=== PATIENT | female | born 1995 | race African-American/Black ===

== ENCOUNTER 2020-05-07 11:09 | Outpatient (CLI) | payer OTHER, BC, SELFPAY ==
[2020-05-07 11:48] LABS: Basophils Percent Auto 0.6 % (0.2-1.2); Eosinophils Absolute Auto 0.3 K/mm3 (0-0.3); Hematocrit 41.2 % (37.0-47.0); Hemoglobin 13.2 g/dL (12.0-15.0); Immature Granulocyte Absolute 0.02 K/mm3 (0.00-0.031); Immature Granulocyte Percent A 0.3 % (0-0.5); Lymphocytes Absolute Auto 2.08 K/mm3 (0.9-3.2); Lymphocytes Percent Auto 30.8 % (18.3-44.2); Mean Corpuscular Hemoglobin 26.1 pg (26-34); Mean Corpuscular Volume 81.4 fl (80-100); Monocytes Absolute Auto 0.4 K/mm3 (0.1-0.6); Monocytes Percent Auto 6.2 % (2.6-8.5); Neutrophils Absolute Auto 3.9 K/mm3 (1.3-6.7); Neutrophils Percent Auto 57.1 % (45.5-73.1); Platelet Count Result 236 k/mm3 (150-375); Red Blood Count 5.06 M/mm3 (4.2-5.4); Red Cell Distribution Width 13.7 % (11.5-14.5); White Blood Count 6.8 K/mm3 (4.5-10.0)
[2020-05-07 12:00] LABS: Alanine Aminotransferase 13 U/L (4-35); Albumin Level 4.1 g/dL (3.5-5.1); Alkaline Phosphatase 50 U/L (38-126); Anion Gap 7 mmol/L (8-16); Aspartate Amino Transferase 20 U/L (14-36); Bilirubin,Total 0.4 mg/dL (0.2-1.3); Blood Urea Nitrogen 11 mg/dL (7-17); Carbon Dioxide 27 mmol/L (22-30); Chloride 107 mmol/L (98-107); Cholesterol 149 mg/dL (0-200); Estimated Glomerular Filt Rate > 60; Glucose 89 mg/dL (65-105); HDL Direct 42 mg/dL; Potassium 4.3 mmol/L (3.4-5.0); Sodium 141 mmol/L (137-145); Triglycerides 98 mg/dL (<150)
[2020-05-07 12:11] LABS: LDL Cholesterol Direct 89 mg/dL
== END 2020-05-07 11:10 | disposition home or self-care (01) ==
PROVIDERS: PCP Internal Medicine; Visit Provider Clinical Nurse Specialist
DX: Z13.228 Encounter for screening for other metabolic disorders (principal); Z13.220 Encounter for screening for lipoid disorders
CPT/HCPCS: 36415; 80053; 80061; 85025

== ENCOUNTER 2021-05-21 13:05 | Outpatient (CLI) | payer OTHER, BC, SELFPAY ==
[2021-05-21 13:24] LABS: Basophils Absolute Auto 0.1 K/mm3 (0.0-0.1); Basophils Percent Auto 0.7 % (0.2-1.2); Eosinophils Absolute Auto 0.3 K/mm3 (0-0.3); Eosinophils Percent Auto 3.7 % (0-4.4); Hematocrit 40.8 % (37.0-47.0); Hemoglobin 13.1 g/dL (12.0-15.0); Immature Granulocyte Absolute 0.01 K/mm3 (0.00-0.031); Immature Granulocyte Percent A 0.1 % (0-0.5); Lymphocytes Absolute Auto 2.37 K/mm3 (0.9-3.2); Lymphocytes Percent Auto 35.3 % (18.3-44.2); Mean Corpuscular HGB Conc 32.1 g/dl (32-36); Mean Corpuscular Hemoglobin 26.3 pg (26-34); Mean Corpuscular Volume 81.9 fl (80-100); Mean Platelet Volume 11.1 fl (7.4-10.4); Monocytes Absolute Auto 0.5 K/mm3 (0.1-0.6); Monocytes Percent Auto 7.3 % (2.6-8.5); Neutrophils Absolute Auto 3.5 K/mm3 (1.3-6.7); Neutrophils Percent Auto 52.9 % (45.5-73.1); Platelet Count Result 241 k/mm3 (150-375); Red Blood Count 4.98 M/mm3 (4.2-5.4); Red Cell Distribution Width 13.6 % (11.5-14.5); White Blood Count 6.7 K/mm3 (4.5-10.0)
[2021-05-21 13:41] LABS: Alanine Aminotransferase 12 U/L (4-35); Albumin Level 4.4 g/dL (3.5-5.1); Alkaline Phosphatase 51 U/L (38-126); Anion Gap 5 mmol/L (8-16); Aspartate Amino Transferase 22 U/L (14-36); Bilirubin,Total 0.5 mg/dL (0.2-1.3); Blood Urea Nitrogen 9 mg/dL (7-17); Carbon Dioxide 26 mmol/L (22-30); Chloride 108 mmol/L (98-107); Cholesterol 158 mg/dL (0-200); Estimated Glomerular Filt Rate > 60; Glucose 84 mg/dL (65-110); HDL Direct 39 mg/dL; Potassium 4.6 mmol/L (3.4-5.0); Sodium 139 mmol/L (137-145); Triglycerides 87 mg/dL (<150)
[2021-05-21 13:52] LABS: LDL Cholesterol Direct 90 mg/dL
== END 2021-05-21 13:06 | disposition home or self-care (01) ==
PROVIDERS: PCP Internal Medicine; Visit Provider Clinical Nurse Specialist
DX: I10 Essential (primary) hypertension (principal)
CPT/HCPCS: 36415; 80053; 80061; 84443; 85025

== ENCOUNTER 2021-07-10 12:46 | Outpatient (CLI) | payer OTHER, BC, SELFPAY ==
--- NOTE | ~2021-07-10 | US_ITS ---
EXAMINATION: US retroperitoneal duplex ltd, US renal BI DATE: 07/10/2021 13:47 INDICATION: Hypertension. Other specified disorders of kidney and ureter. TECHNIQUE: 1. Multiple grayscale and color Doppler images of the kidneys were obtained. 2. Multiple grayscale and pulsed Doppler images of the aorta and renal arteries were obtained. COMPARISON: None. FINDINGS: Kidneys: The right kidney measures 10.3 x 4.7 x 4.6 cm. The left kidney measures 9.7 x 5.0 x 4.4 cm. The kidne ys demonstrate normal echogenicity. There is no hydronephrosis in either kidney. No stones identifie d. The bladder is normal. Renal arteries/vascular: The aorta peak systolic velocity is 162 cm/s. The right renal artery peak systolic velocity is 80 cm/ s in the proximal segment, 149 cm/s in the mid segment, and 75 cm/s in the distal segment. The left r enal artery peak systolic velocity is 142 cm/s in the proximal segment, 123 cm/s in the mid segment, and 93 cm/s in the distal segment. IMPRESSION: 1. Normal kidneys with no hydronephrosis. 2. No Doppler evidence of renal artery stenosis. Reviewed, dictated and finalized at location A. IMPRESSION: 1. Normal kidneys with no hydronephrosis. 2. No Doppler evidence of renal artery stenosis.
== END 2021-07-10 12:47 | disposition home or self-care (01) ==
PROVIDERS: PCP Internal Medicine; Visit Provider Clinical Nurse Specialist
DX: N28.89 Other specified disorders of kidney and ureter (principal); I10 Essential (primary) hypertension
CPT/HCPCS: 76775; 93976

== ENCOUNTER 2023-05-26 11:15 | Outpatient (CLI) | payer BC, MEDICAID, SELFPAY ==
[2023-05-26 14:41] LABS: Basophils Percent Auto 0.6 % (0.2-1.2); Eosinophils Absolute Auto 0.2 K/mm3 (0-0.3); Eosinophils Percent Auto 3.1 % (0-4.4); Hematocrit 43.4 % (37.0-47.0); Hemoglobin 13.3 g/dL (12.0-15.0); Immature Granulocyte Absolute 0.02 K/mm3 (0.00-0.031); Immature Granulocyte Percent A 0.3 % (0-0.5); Lymphocytes Percent Auto 26.7 % (18.3-44.2); Mean Corpuscular HGB Conc 30.6 g/dl (32-36); Mean Corpuscular Hemoglobin 25.8 pg (26-34); Mean Corpuscular Volume 84.3 fl (80-100); Mean Platelet Volume 12.3 fl (7.4-10.4); Monocytes Absolute Auto 0.5 K/mm3 (0.1-0.6); Monocytes Percent Auto 6.9 % (2.6-8.5); Neutrophils Absolute Auto 4.4 K/mm3 (1.3-6.7); Neutrophils Percent Auto 62.4 % (45.5-73.1); Platelet Count Result 250 k/mm3 (150-375); Red Blood Count 5.15 M/mm3 (4.2-5.4); Red Cell Distribution Width 13.8 % (11.5-14.5); White Blood Count 7.1 K/mm3 (4.5-10.0)
[2023-05-26 15:39] LABS: Alanine Aminotransferase 19 U/L (6-35); Albumin Level 4.6 g/dL (3.5-5.1); Alkaline Phosphatase 62 U/L (38-126); Anion Gap 5 mmol/L (8-16); Aspartate Amino Transferase 48 U/L (14-36); Bilirubin,Total 0.9 mg/dL (0.2-1.3); Blood Urea Nitrogen 11 mg/dL (7-17); Calcium 9.8 mg/dL (8.4-10.2); Carbon Dioxide 29 mmol/L (22-30); Chloride 105 mmol/L (98-107); Cholesterol 154 mg/dL (0-200); Estimated Glomerular Filt Rate > 60; Glucose 89 mg/dL (65-110); HDL Direct 39 mg/dL; Potassium 4.3 mmol/L (3.4-5.0); Sodium 139 mmol/L (137-145); Triglycerides 85 mg/dL (<150)
[2023-05-26 15:50] LABS: LDL Cholesterol Direct 97 mg/dL
[2023-05-28 13:23] LABS: Hemoglobin A1C 5.3 % (<5.7)
== END 2023-05-26 11:16 | disposition home or self-care (01) ==
LOC: ANHGOSHLAB 11:17
PROVIDERS: PCP Internal Medicine; Visit Provider Clinical Nurse Specialist
DX: F41.9 Anxiety disorder, unspecified (principal); R73.9 Hyperglycemia, unspecified; I10 Essential (primary) hypertension; E55.9 Vitamin D deficiency, unspecified; Z13.228 Encounter for screening for other metabolic disorders
CPT/HCPCS: 36415; 80053; 80061; 82306; 83036; 84443; 85025

== ENCOUNTER 2024-04-03 09:22 | Outpatient (CLI) | payer BC, OTHER, SELFPAY ==
--- OUTSIDE RECORDS SUMMARY | 2024-04-03 09:57 | XMS_ITS | Clinical Summary ---
Author Organization [id number] Address [address] [place] [address] Care Team Providers Care Retail Loss Prevention Specialist Name Role Phone No, Physician Primary Care Provider [phone] Allergies No known active allergies Medications propranolol (INDERAL) 20 mg tablet TAKE 1 TABLET BY MOUTH TWICE A DAY 01/25/2019 Active escitalopram (LEXAPRO) 10 mg tablet TAKE 1 TABLET BY MOUTH EVERY DAY 01/02/2019 Active L norgest/e.estrad iol-e.estrad 0.10 mg-20 mcg (84)/10 mcg (7) tablets,dose pack,3 month TAKE 1 TABLET BY MOUTH EVERY DAY 01/02/2019 Active Active Problems Problem Noted Date Diagnosed Date Dysmenorrhea 10/06/2012 Vaginal discharge 07/26/2012 Generalized anxiety disorder 06/28/2012 Bacterial vaginosis 04/22/2012 Encounter for contraceptive management 3 Epistaxis 02/10/2012 Social phobia 02/02/2012 Myopia 01/25/2012 Astigmatism 01/25/2012 Abnormal finding on thyroid function test 2011 Mixed anxiety depressive disorder 07/30/2011 Abdominal pain 02/19/2011 Eczema 11/14/2010 Hay fever 11/14/2010 Complete tear of anterior cruciate ligament of k nee 03/22/2009 Vitamin D deficiency disease 10/03/2008 Obesity 09/25/2008 Hypertension 08/25/2007 Medical History Medical History Date Comments Encounter for contraceptive management Contraceptive management - (Added by TW Conv) Social History Tobacco Use Types Packs/Day Years Used Date Smoking Tobacco: Never Smokeless Tobacco: Never Personal Safety Answer Date Recorded Getting School Help Needed Not on file 05/21 Comments Unknown Sex and Gender Information Value Date Recorded Sex Assigned at Not on file Legal Sex Female 9:17 PM SENIOR 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 DBA Gender Identity Not on file Sexual Orientation Not on file Obstetrics History Last Filed Vital Signs Vital Sign Reading Time Taken Comments Blood Pressure 154/89 08/12/2021 5:26 AM CDT Pulse 98 08/12/2021 5:26 AM CDT Temperature 36.8 ??C (98.2 ??F) 08/12/2021 4:44 AM CD T Respiratory Rate 20 08/12/2021 5:26 AM CDT Oxygen Saturation 98% 08/12/2021 5:26 AM CDT Inhaled Oxygen Concentration - - Weight 88.1 kg (194 lb 3.6 oz) 08/12/2021 4:44 A M CDT Height 160 cm (5' 3 ) 03/10/2019 3:23 PM SENIOR ORACLE DBA Body Mass Index 34.41 03/10/2019 3:23 PM SENIOR ORACLE DBA Plan of Treatment Not on file Insurance [employer]PA [place] OPEN ACCESS IDPA CIGNA OPEN ACCESS CIGNA OPEN ACCESS Care Teams Retail Loss Prevention Specialist Relationship Specialty Start Date End Date No, Physician PCP - General 03/10/19
--- OUTSIDE RECORDS SUMMARY | 2024-04-03 09:57 | XMS_ITS | Clinical Summary ---
Author Organization [facility] Address [address] [place] [address] Care Team Providers Care Game Show Host Name Role Phone Elvia Perez APRN-[facility] Primary Care Provider [phone] Source Comments [facility],non-owned Affiliates and Associated Physician Practices is amultiple site organization consisting of ambulatory clinics and hospital sitesin [place], [place], [place] and [place]. This disclosure is being madepursuant to the Care Everywhere program and may not contain all information available regarding this patient. Last updated 17.[facility] Allergies Active Allergy Reactions Criticality Noted Date Comments Dust Mite Extract Rhinitis 11/14/2013 Medications * Be aware that medications may not be up to date on this document. Alwaysverify current medications with the patient. Medication Sig Dispensed Refills Start Date End Date Status diphenhydrAMINE (BENADRYL) 25 MG capsule Take 25 mg by mouth every 4 hours as needed. For itching Active escitalopram (LEXAPRO) 20 MG tablet Take 1 (one) tablet by mouth once daily 09/28/2020 Active buPROPion XL 24hr (Wellbutrin-XL) 150 MG tablet Take 1 (one) tablet by mouth every morning 10/04/2023 Active lisinopril (Prinivil; Zestril) 5 MG tablet Take 1 (one) tablet by mouth once daily 10/05/2023 Active Ashlyna 0.15-0.03 &0.01 MG tablet Take 1 (one) tablet by mouth once daily 91 tablet 4 11/09/2023 Active Active Problems Problem Noted Date Diagnosed Date Candidiasis 10/22/2023 Depression 06/07/2013 History of heavy periods 06/07/2013 Vaginal discharge 06/07/2013 Vaginitis, atrophic 06/07/2013 Immunizations Name Administration Dates Next Due Covid Pfizer primary monoval ent 12+ yr 0.3mL Purple cap 10/15/2020,10/15/2020,09/25/2020, 021 INFLUENZA VACCINE 01/05/2013 Family History Medical History Relation Name Comments Hypertension Brother Hypertension Mother Hypertension Other paternal uncle on dialysis Relation Name Status Comments Brother Mother Other Social History Tobacco Use Types Packs/Day Years Used Date Smoking Tobacco: Never Smokeless Tobacco: Never Alcohol Use Standard Drinks/Week Comments No 0 (1 standard drink = 0.6 oz pur e alcohol) Sex and Gender Information Value Date Recorded Sex Assigned at Not on file Gender Identity Not on file Sexual Orientation Not on file Last Filed Vital Signs Vital Sign Reading Time Taken Comments Blood Pressure 128/84 11/09/2023 3:45 PM CDT Pulse 94 04/19/2015 7:00 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 Temperature 36.3 ??C (97.3 ??F) 11/08/2019 3:17 PM CD T Respiratory Rate 20 04/19/2015 7:00 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 Oxygen Saturation 99% 04/19/2015 7:00 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 Inhaled Oxygen Concentration - - Weight 83.5 kg (184 lb) 11/09/2023 3:45 PM CDT Height 160 cm (5' 3 ) 11/09/2023 3:45 PM CDT Body Mass Index 32.59 11/09/2023 3:45 PM CDT Plan of Treatment Upcoming Encounters Date Type Department Care Team (Late st Contact Info) Description 11/15/2024 10:15 AM CDT Office Visit [facility] [address] [facility] [address] [place] [address] Berna Araiza MD [address] [facility] [address] [place] [address] Health Maintenance Due Date Last Done Comments HIV SCREENING 2012 HPV VACCINE (1 - 3-dose series) 2012 HEPATITIS C SCREENING 08/03/2015 DTAP/TDAP/TD VACCINES (1 - Tdap) 2016 HEPATITIS B VACCINE (1 of 3 - 19+ 3-dose series) 2016 COVID-19 VACCINE ( season) 2023 10/15/2020, 10/15/2020, 09/25/2020, Additional history exists INFLUENZA VACCINE (#1) 2023 04/14/2017, 2012 DEPRESSION SCREENING 03/08/2024 PAP SMEAR 11/08/2026 11/09/2023, 10/08, 08/12/2021, Additional history exists ZOSTER VACCINE (1 of 2) 08/08/2047 HIB VACCINE Aged Out No longer eligi ble based on patient's age to complete this topic MENINGOCOCCAL (Group B) VACCINE Aged Out No longer eligible based on patient's age to complete this topic MENINGOCOCCAL VACCINE Aged Out No wilver shirin eligible based on patient's age to complete this topic PNEUMOCOCCAL VACCINE Aged Out No long er eligible based on patient's age to complete this topic Procedures Procedure Name Priority Date/Time Associated Diagnosis Comments PAP IMAGE-GUIDED W HPV+CT/NG+TRICH Routine 11/09/2023 4:08 PM CDT Encounter for annual routine gynecological examination Screen for STD (sexually transmitted disease) ASCUS with positive high risk HPV cervical from Last 3 Months or Most Recently Relevant to Health Maintenance Results * All inclusive PAP IG CT/NG/TV HPV (11/09/2023 4:08 PM CDT) Case Report Gynecologic Cytology Report ? Case: [id number] ? Authorizing Provider: ??Berna Araiza MD ? Collected: ? 11/09/2023 04:08 PM ? [facility] ? [facility] - ??Received: ?11/10/2023 01:03 PM ? [facility] ? First Screen: ?Gael Cameron CT(ASCP) ? Specimen: ?THINPREP - IMAGE GUIDED, Cervix/Endocervix ? 11/11/2023 1:01 PM CDT [facility] LMP 10/12/2023 11/11/2023 1:01 PM CDT [facility] Menstrual Status Oral Contraceptives 11/11/2023 1:01 PM CDT [facility] Specimen Adequacy Satisfactory for evaluation, endocervical/trans formation zone component present. 11/11/2023 1:01 PM CDT [facility] Categorization Negative for intraepithelial lesion or malignancy. 11/11/2023 1:01 PM CDT [facility] Interpretation LICENSED FINAL EXPENSE AGENTS Negative for intraepithelial lesion or malignancy. 11/11/2023 1:01 PM CDT [facility] Pap Footnote The Pap Smear is a screening test. False positive and false negative results occur. Negative results do not preclude abnormalities, thus clinical correlation is required. This specimen was evaluated by the ThinPrep Imaging System along with an additional manual rescreening by a jewelry facer and/or pathologist. 11/11/2023 1:01 PM CDT [facility] Embedded Images 1:01 PM CDT [facility] Pathology/Cytolo gy MISCELLANEOUS SAMPLES / Unknown 11/09/2023 4:08 PM CDT 11/10/2023 1:03 PM CDT Berna Araiza MD LAB - PATHOLOGY/CYTO LOGY ORDERABLES [facility] [address] [phone] from Last 3 Months or Most Recently Relevant to Health Maintenance Care Teams Game Show Host Relationship Specialty Start Date End Date Elvia Perez APRN-SENIOR MARKETING ENGINEER [address] [place] [address] PCP - General Certified Clinical Nurse Specialist 11/04/22
--- OUTSIDE RECORDS SUMMARY | 2024-04-03 09:57 | XMS_ITS | Clinical Summary ---
Author Organization [facility] Address [address] [place] [address]. [place] [address] [place] [address] Care Team Providers Care Electrical Line Splicer Name Role Phone New Referring, Provider Primary Care Provider Un available Allergies No known active allergies Medications busPIRone 5 MG tablet Take 5 mg by mouth 2 (two) times daily. 05/08/2020 Active escitalopram 10 MG tablet Take 10 mg by mouth daily. 11/08/2019 Active Levonorgest-Eth Estrad 91-Day 0.1-0.02 & 0.01 MG Tab Take 1 tablet by mouth daily. 05/31/2020 Active lisinopril 10 MG tablet Take 10 mg by mouth daily. 02/20/2020 Active hydrOXYzine 25 MG tablet Take 1 tablet (25 mg total) by mouth 3 (three) times daily as needed for Anxiety. 12 tablet 08/22/2020 Active Family History Medical History Relation Comments Asthma Brother Diabetes Father Hypertension Father Hypertension Mother Multiple Sclerosis Mother Relation Status Comments Brother Father Alive Mother Alive Social History Tobacco Use Types Packs/Day Years Used Date Smoking Tobacco: Never Smokeless Tobacco: Never Alcohol Use Standard Drinks/Week Comments Never 0 (1 standard drink = 0.6 oz pur e alcohol) AUDIT-C Answer Date Recorded Q1: How often do you have a drink containing alc ohol? Never 06/27/2020 Average Number of Drinks Not on file 021 Frequency of Binge Drinking Not on file 06/07 Comments No Sex and Gender Information Value Date Recorded Sex Assigned at Not on file Legal Sex Female 6:46 PM CDT Gender Identity Not on file Sexual Orientation Not on file Last Filed Vital Signs Vital Sign Reading Time Taken Comments Blood Pressure 180/110 08/22/2020 2:48 PM CDT Pulse 127 08/22/2020 2:48 PM CDT Temperature 37.3 ??C (99.2 ??F) 08/22/2020 2:48 PM CD T Respiratory Rate 18 08/22/2020 2:48 PM CDT Oxygen Saturation 97% 08/22/2020 2:48 PM CDT Inhaled Oxygen Concentration - - Weight 90.7 kg (200 lb) 08/22/2020 2:48 PM CDT Height 160 cm (5' 3 ) 08/22/2020 2:48 PM CDT Body Mass Index 35.43 08/22/2020 2:48 PM CDT Plan of Treatment Health Maintenance Due Date Last Done Comments Annual Physical 2000 DTaP, Tdap and Td Vaccines (5 - Tdap) 2008 12/30/1998, 04/17/1998, 01/15/1998, Additional history exists HPV Vaccines (2 - 3-dose series) 06/28/2014 05/31/2014 Hepatitis C 08/08/2015 Hepatitis B Vaccines (1 of 3 - 19+ 3-dose series) 2016 COVID-19 Vaccine ( - season) 2023 10/15/2020, 09/25/2020, 09/24/2020 Influenza Adult (#1) 2023 04/14/2017, 01/06/20 13 Cervical Cancer Screening Pap Smear (Age 21 to 29) Every 3 Years 08/12/2024 08/12/2021 Cervical Cancer Screening 08/12/2024 Meningococcal Vaccine Completed 05/31/2014 Meningococcal B Vaccine Aged Out No l onger eligible based on patient's age to complete this topic Pneumococcal Vaccine: Pediatrics (0 to 5 Years) and At-Risk Patients (6 to 64 Years) Aged Out No longer eligible based on patient's age to complete this topic RSV Immunizations Under 20 Months Aged Out No longer eligible based on patient's age to complete this topic Insurance [place] [address] [place] [address] Care Teams Electrical Line Splicer Relationship Specialty Start Date End Date New Referring, Provider PCP - General UNKNOWN PHYSICIAN SPECIALTY 08/22/20
--- OUTSIDE RECORDS SUMMARY | 2024-04-03 09:57 | XMS_ITS | Continuity of Care Document ---
Author Organization [facility] Address [address] [place] [address] Phone Care Team Providers Care Loan Review Officer Name Role Phone Candy Dockery Unavailable Unavailable Advance Directives Directive Yes / No Effective Date File Name No Information Encounters Encounter Description Practice Location Reason(s) For Visit Diagnoses Date Provider Providers Copied on Encounter [facility], [address], [place], [place], [id number], [place] tel:[phone] [facility] No Information Shiloh Gupta. [address] [place] [address], [id number], [place]. tel:[phone] Family History Family Member Type Diagnosis Age At Onset No Information Payers Payer name Insurance type Covered republican ID Authoriza tion(s) No Information Social History Type Description Quantity Date Captured Comments Alcohol Use Details Unknown Caffeine Use Details Unknown Tobacco Use Status No Information Smoking Status No Information Sex Female Chief Complaint And Reason For Visit No Information Reason For Referral Reason For Referral No Information History Of Present Illness Encounter Date Complaint History Of Prese nt Illness No Information Functional Status Date Functional Assessmen t No Information Instructions Date Instruction Additional Infor mation No Information Assessments Type Assessment Date No Information Patient Care Teams Name Effective Dates (start - stop) Status Members No Information
--- OUTSIDE RECORDS SUMMARY | 2024-04-03 09:57 | XMS_ITS | Clinical Summary ---
Author Organization 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 Gender Identity Not on file Sexual Orientation Not on file Plan of Treatment Health Maintenance Due Date Last Done Comments Hepatitis C Virus (HCV) Screening 1997 TdaP Immunization 1997 Human Papillomavirus (HPV) Immunization (2 - 3-dose series) 06/28/2014 05/31/2014 Pap Smear 2018 Influenza Immunization (#1) 2023 04/14/2017 SARS-COV-2 Immunization ( season) 2023 10/15/2020, 09/24/2020 Respiratory Syncytial Virus (RSV) Immunization (Adult) (1 - 1-dose 75+ series) 2072 Hepatitis B Immunization Completed 999, 01/15/1998, 1997 DTaP/Tdap/Td Immunization Discontinued 1998, 04/17/1998, 01/15/1998, Additional history exists Meningococcal Immunization (ACWY) Completed 05/31/2014 Pneumococcal Immunization Combined Aged Out No longer eligible based on patient's age to complete this topic Rotavirus Immunization Aged Out No lo nger eligible based on patient's age to complete this topic Insurance [employer] on file
--- OUTSIDE RECORDS SUMMARY | 2024-04-03 09:57 | XMS_ITS | Patient Health Summary ---
Author Organization [facility] Address [address] [address] Care Team Providers Care Psychiatric Nurse Practitioner Name Role Phone Elvia Perez APRN-PERSONAL LOAN SPECIALIST Primary Care Provider [phone] Note from [facility],non-owned Affiliates and Associated Physician Practices is amultiple site organization consisting of ambulatory clinics and hospital sitesin [place], [place], [place] and [place]. This disclosure is being madepursuant to the Care Everywhere program and may not contain all information available regarding this patient. Last updated 17.[facility] Allergies * Dust Mite Extract(Rhinitis) * Oxymetazoline Hcl(Rash) -High Criticality,Inactive Medications * Be aware that medications may not be up to date on this document. Alwaysverify current medications with the patient. * diphenhydrAMINE (BENADRYL) 25 MG capsule Take 25 mg by mouth every 4 hours as needed. For itching * escitalopram (LEXAPRO) 20 MG tablet(Started 09/28/2020) Take 1 (one) tablet by mouth once daily * buPROPion XL 24hr (Wellbutrin-XL) 150 MG tablet(Started 10/04/2023) Take 1 (one) tablet by mouth every morning * lisinopril (Prinivil; Zestril) 5 MG tablet(Started 10/05/2023) Take 1 (one) tablet by mouth once daily * Ashlyna 0.15-0.03 &0.01 MG tablet(Started 11/09/2023) Take 1 (one) tablet by mouth once daily 4 refills by 11/08/2024 Active Problems Problem Noted Date Diagnosed Date Candidiasis 10/22/2023 Depression 06/07/2013 History of heavy periods 06/07/2013 Vaginal discharge 06/07/2013 Vaginitis, atrophic 06/07/2013 Immunizations * Covid Pfizer primary monovalent 12+ yr 0.3mL Purple cap(Given 10/15/2020, 10/15/2020, 09/25/2020, 09/24/2020) * INFLUENZA VACCINE(Given 01/05/2013) Social History Tobacco Use Types Packs/Day Years [...] PM CDT Pulse 94 04/19/2015 7:00 PM [employer] Temperature 36.3 ??C (97.3 ??F) 11/08/2019 3:17 PM CD T Respiratory Rate 20 04/19/2015 7:00 PM [employer] Oxygen Saturation 99% 04/19/2015 7:00 PM [employer] Inhaled Oxygen Concentration - - Weight 83.5 kg (184 lb) 11/09/2023 3:45 PM CDT Height 160 cm (5' 3 ) 11/09/2023 3:45 PM CDT Body Mass Index 32.59 11/09/2023 3:45 PM CDT Procedures * FUNGUS JOSE - POINT OF CARE (AMB) [facility](Performed 11/09/2023) Performed for Vaginal discharge * WET PREP - POINT OF CARE (AMB) [facility](Performed 11/09/2023) Performed for Vaginal discharge * PAP IMAGE-GUIDED W HPV+CT/NG+TRICH(Performed 11/09/2023) Performed for Encounter for annual routine gynecological examination, Screen for STD (sexually transmitted disease), ASCUS with positive high risk HPV cervical * C. TRACHOMATIS + N. GONORRHOEAE + TRICH YUE(Performed 11/09/2023) Performed for Encounter for annual routine gynecological examination, Screen for STD (sexually transmitted disease), ASCUS with positive high risk HPV cervical * HPV DETECTION HIGH RISK YUE(Performed 11/09/2023) Performed for Encounter for annual routine gynecological examination, Screen for STD (sexually transmitted disease), ASCUS with positive high risk HPV cervical * SURESWAB VAGINOSIS/VAGINITIS PLUS(Performed 10/21/2023) Performed for Acute vaginitis * MS COLPOSCOPY,BX CERVIX/ENDOCERV CURR(Performed 12/28/2022) Performed for ASCUS with positive high risk HPV cervical * HCG URINE QUALITATIVE - POCT (IP) [facility](Performed 12/28/2022) Performed for ASCUS with positive high risk HPV cervical * PATHOLOGY TISSUE(Performed 12/28/2022) Performed for ASCUS with positive high risk HPV cervical * PAP IMAGE-GUIDED RFLX HPV+CT/NG+TRICH(Performed 11/04/2022) Performed for BV (bacterial vaginosis), Encounter for annual routine gynecological examination, Screen for STD (sexually transmitted disease), Vaginal discharge * HPV GENOTYPES 16,18/45(Performed 11/04/2022) Performed for BV (bacterial vaginosis), Encounter for annual routine gynecological examination, Screen for STD (sexually transmitted disease), Vaginal discharge * HPV DETECTION HIGH RISK YUE(Performed 11/04/2022) Performed for BV (bacterial vaginosis), Encounter for annual routine gynecological examination, Screen for STD (sexually transmitted disease), Vaginal discharge * C. TRACHOMATIS + N. GONORRHOEAE + TRICH YUE(Performed 11/04/2022) Performed for BV (bacterial vaginosis), Encounter for annual routine gynecological examination, Screen for STD (sexually transmitted disease), Vaginal discharge * C. TRACHOMATIS + N. GONORRHOEAE + TRICH YUE(Performed 01/17/2021) Performed for Vaginitis and vulvovaginitis * FUNGUS JOSE - POINT OF CARE (AMB) [facility](Performed 01/07/2021) Performed for Vaginal discharge, Chronic vaginitis * WET PREP - POINT OF CARE (AMB) [facility](Performed 01/07/2021) Performed for Vaginal discharge, Chronic vaginitis * SUSCEPTIBILITY YEAST(Performed 01/07/2021) * CULTURE FUNGUS OTHER+FUNGUS SMEAR(Performed 01/07/2021) Performed for Vaginal discharge, Chronic vaginitis * WET PREP - POINT OF CARE (AMB) [facility](Performed 09/04/2020) Performed for Vaginal discharge, Vaginal yeast infection * FUNGUS JOSE - POINT OF CARE (AMB) [facility](Performed 09/04/2020) Performed for Vaginal discharge, Vaginal yeast infection * PAP IMAGE-GUIDED RFLX HPV+CT/NG+TRICH(Performed 09/04/2020) Performed for Transformation zone absent on cervical Pap smear, Vaginal discharge * C. TRACHOMATIS + N. GONORRHOEAE + TRICH YUE(Performed 09/04/2020) Performed for Transformation zone absent on cervical Pap smear, Vaginal discharge * PAP IMAGE-GUIDED RFLX HPV+CT/NG+TRICH(Performed 11/08/2019) Performed for Encounter for annual routine gynecological examination, Screen for STD (sexually transmitted disease) * C. TRACHOMATIS + N. GONORRHOEAE + TRICH YUE(Performed 11/08/2019) Performed for Encounter for annual routine gynecological examination, Screen for STD (sexually transmitted disease) * SURESWAB VAGINOSIS/VAGINITIS PLUS(Performed 02/25/2018) Performed for Acute vaginitis, Vaginal discharge * CULTURE URINE(Performed 02/23/2018) Performed for Urinary urgency * URINALYSIS - POINT OF CARE(Performed 02/22/2018) Performed for Urinary urgency * FUNGUS JOSE - POINT OF CARE (AMB) [facility](Performed 12/09/2015) * WET PREP - POINT OF CARE (AMB) [facility](Performed 12/09/2015) * CHLAMYDIA+GC YUE PAP VIAL(Performed 12/09/2015) * BASIC METABOLIC PANEL (CALCIUM TOTAL)(Performed 06/28/2015) Performed for HTN, age 0-18 * FUNGUS JOSE - POINT OF CARE (AMB) [facility](Performed 04/30/2015) * WET PREP - POINT OF CARE (AMB) [facility](Performed 04/30/2015) * FUNGUS JOSE - POINT OF CARE (AMB) [facility](Performed 01/28/2015) * WET PREP - POINT OF CARE (AMB) [facility](Performed 01/28/2015) * URINALYSIS - POINT OF CARE (AMB) [facility](Performed 01/28/2015) * CULTURE FUNGUS OTHER+FUNGUS SMEAR(Performed 01/28/2015) * LAB RESULTS ORDER(Performed 12/14/2014) * LH PEDIATRIC(Performed 05/02/2014) * FSH PEDIATRIC(Performed 05/02/2014) * HEMOGLOBIN A1C(Performed 05/02/2014) * ESTRADIOL(Performed 05/02/2014) * TESTOSTERONE TOTAL FEM/CHLD HYPOGNDL MALE(Performed 05/02/2014) * CULTURE FUNGUS OTHER+FUNGUS SMEAR(Performed 05/02/2014) * CHLAMYDIA + GC RNA(Performed 05/02/2014) * FUNGUS JOSE - POINT OF CARE (AMB) [facility](Performed 05/02/2014) * WET PREP - POINT OF CARE (AMB) [facility](Performed 05/02/2014) * BASIC METABOLIC PANEL (CALCIUM TOTAL)(Performed 04/27/2014) Performed for HTN (hypertension) * CBC W AUTO DIFFERENTIAL(Performed 04/27/2014) Performed for HTN (hypertension) * EKG 15-LEAD(Performed 04/27/2014) Performed for HTN (hypertension) * URINALYSIS - POCT (IP) [facility](Performed 04/27/2014) * BASIC METABOLIC PANEL (CALCIUM TOTAL)(Performed 11/14/2013) Performed for Renal scarring * URINALYSIS - POCT (IP) BEAKER(Performed 11/14/2013) * FUNGUS JOSE - POINT OF CARE (AMB) [facility](Performed 11/08/2013) * WET PREP - POINT OF CARE (AMB) [facility](Performed 11/08/2013) * ESTRADIOL(Performed 06/07/2013) * CBC W AUTO DIFFERENTIAL(Performed 06/07/2013) * THYROID PEROXIDASE ANTIBODY(Performed 06/07/2013) * T3 TOTAL(Performed 06/07/2013) * T4 TOTAL(Performed 06/07/2013) * T4 FREE(Performed 06/07/2013) * TSH(Performed 06/07/2013) * FUNGUS JOSE - POINT OF CARE (AMB) [facility](Performed 06/07/2013) * WET PREP - POINT OF CARE (AMB) [facility](Performed 06/07/2013) * URINE MICROSCOPIC ONLY(Performed 04/28/2013) Performed for HTN (hypertension) * URINALYSIS REFLEX TO MICROSCOPIC NO CULTURE(Performed 04/28/2013) Performed for HTN (hypertension) * CULTURE URINE(Performed 04/28/2013) Performed for HTN (hypertension) * LAB RESULTS ORDER(Performed 04/15/2013) * BASIC METABOLIC PANEL (CALCIUM TOTAL)(Performed 01/05/2013) Performed for HTN (hypertension) * CULTURE URINE(Performed 01/05/2013) Performed for HTN (hypertension) * URINALYSIS - POCT (IP) [facility]AK[facility](Performed 01/05/2013) * LAB RESULTS ORDER(Performed 06/23/2012) * BASIC METABOLIC PANEL (CALCIUM TOTAL)(Performed 04/08/2012) Performed for Hypertension * URINALYSIS - POCT (IP) [facility](Performed 04/08/2012) Performed for Hypertension * LAB RESULTS ORDER(Performed 11/26/2011) * US KIDNEY(Performed 11/20/2011) Performed for HTN (hypertension) * ECHO CONSULT - PEDIATRIC(Performed 11/20/2011) Performed for Essential hypertension, malignant * RENAL FUNCTION PANEL(Performed 10/02/2011) Performed for HTN (hypertension) * URINE MICROSCOPIC ONLY(Performed 10/02/2011) Performed for HTN (hypertension) * URINALYSIS REFLEX TO MICROSCOPIC NO CULTURE(Performed 10/02/2011) Performed for HTN (hypertension) * URINALYSIS - POINT OF CARE (IP)(Performed 03/24/2011) Performed for Hypertension * LAB RESULTS ORDER(Performed 01/13/2011) * DIFFERENTIAL MANUAL(Performed 12/23/2010) * CBC W AUTO DIFFERENTIAL(Performed 12/23/2010) Performed for Hypertension * RENAL FUNCTION PANEL(Performed 12/23/2010) Performed for Hypertension * MRI BRAIN WO CONTRAST(Performed 07/24/2010) * URINALYSIS REFLEX TO MICROSCOPIC NO CULTURE(Performed 06/17/2010) * CULTURE URINE(Performed 06/17/2010) * DIFFERENTIAL MANUAL(Performed 06/17/2010) * CBC W AUTO DIFFERENTIAL(Performed 06/17/2010) * RENAL FUNCTION PANEL(Performed 06/17/2010) * LAB RESULTS ORDER(Performed 06/10/2010) * URINALYSIS - POINT OF CARE (IP)(Performed 11/01/2009) Performed for Blood Pressure Elevated * URINALYSIS REFLEX TO MICROSCOPIC NO CULTURE(Performed 07/10/2009) Performed for Hypertension * RENAL FUNCTION PANEL(Performed 07/10/2009) Performed for Hypertension * CULTURE URINE(Performed 07/10/2009) * CULTURE URINE(Performed 07/10/2009) Performed for Unspecified Essential Hypertension * URINALYSIS - POINT OF CARE(Performed 05/14/2009) Performed for Unspecified Essential Hypertension * GROSS + MICRO EXAM(Performed 1997) Results * WET PREP - POINT OF CARE (AMB) [facility] (11/09/2023 4:10 PM CDT) Only the most recent of9 resultswithin the time period is included. pH Wet Prep 4.[address] [facility] [address] Yeast Wet Prep absent [facility] [address] Trichomonas Wet Prep Absent [facility] [address] Bacteria Wet Prep absent [facility] [address] Whiff Test absent [facility] [address] BODY FLUID SPECIMEN / Unknown 11/09/2023 4:10 PM CDT Impressions [facility] [address] - 11/09/2023 4:30 PM CDT Neg wet prep Narrative [facility] [address] - 11/09/2023 4:30 PM CDT No clue cells, no motile trich, ??no WBC's, no yeast hyphae Berna Araiza MD LAB - POINT OF CARE ORDERABLES Performing Organization Address City/[facility]/ZIP Co de Phone Number [facility] [address] [place] [address], [place] [phone] * (ABNORMAL) FUNGUS JOSE - POINT OF CARE (AMB) [facility] (11/09/2023 4:10 PM CDT) Only the most recent of9 resultswithin the time period is included. JOSE Prep Yes [facility] [address] Fluid BODY FLUID SPECIMEN / Unknown 11/09/2023 4:10 PM CDT Impressions [facility] [address] - 11/09/2023 4:30 PM CDT Yeast vaginitis Narrative [facility] [address] - 11/09/2023 4:30 PM CDT Yeast pseudohyphae noted Berna Araiza MD LAB - POINT OF CARE ORDERABLES [facility] [address] [place] [address] [phone] * HPV DETECTION HIGH RISK YUE (11/09/2023 4:08 PM CDT) Only the most recent of2 resultswithin the time period is included. High Risk Human Papilloma Result Not detected Not detected 11/11/2023 7:51 AM CDT [facility] High Risk Human Papilloma Interp 11/11/2023 7:51 AM CDT [facility] Comment:High Risk Human Jerod lloma Virus was Not Detected. Pathology/Cytolo gy MISCELLANEOUS SAMPLES / Unknown 11/09/2023 4:08 PM CDT 11/10/2023 1:03 PM CDT Narrative [facility] - 11/11/2023 7:51 AM CDT Nucleic acid isolated from the specimen was analyzed with a nucleic acid amplification test (FDA approved Gen-Probe HPV Assay) to detect high risk human papilloma virus (Types: 16, 18, 31, 33, 35, 39, 45, 51, 52, 56, 58, 59, 66, and 68). ??The reference range is Not Detected . Comment: These test results should not be used as the sole basis for clinical assessment and treatment of patients. ??These results should always be correlated with other available data (cytology, histology, and clinical information). Berna Araiza MD LAB - MICROBIOLOGY O [facility] Performing Organization Address City/State/[facility] Co de Phone Number [facility] [address] [phone] * C. TRACHOMATIS + N. GONORRHOEAE + TRICH YUE (11/09/2023 4:08 PM CDT) Only the most recent of5 resultswithin the time period is included. Chlamydia Trachomatis YUE Not detected Not detected 11/18/2023 8:19 AM CDT [facility] Neisseria Gonorrhoeae YUE Not detected Not detected 11/18/2023 8:19 AM CDT [facility] Trichomonas Vaginalis YUE Not detected Not detected 11/18/2023 8:19 AM CDT [facility] Pathology/Cytolo gy MISCELLANEOUS SAMPLES / Unknown 11/09/2023 4:08 PM CDT 11/10/2023 1:03 PM CDT Narrative [facility] - 11/18/2023 8:19 AM CDT This analysis was performed using Gen-Probe Aptima Combo 2 and Gen-Probe Aptima Assay. These methodologies are U.S. FDA approved for Chlamydia trachomatis, Neisseria gonorrhoeae testing for urine and urogenital swabs from men and women, and cervical cells submitted in ThinPrep vials. Performance characteristics of testing for Trichomonas vaginalis on specimens using the Gen-Probe Aptima Trichomonas vaginalis Assay on the [employer] system and rectal and pharyngeal swabs with Gen-Probe Aptima combo 2 were determined by the Molecular Diagnostics Laboratory at [facility]. ??They have not been cleared or approved by the U.S Food and Drug Administration (FDA). ??The FDA has determined that such clearance approval is not necessary. ??This test is used for clinical purposes and should not be regarded as investigational or for research. ??This laboratory is certified under the Clinical Laboratory Improvements Amendments of 1988 (CLIA 1988), as qualified to perform high complexity laboratory testing. Berna Araiza MD LAB - MICROBIOLOGY O RDERABLES [facility] [address] [facility] [place] [address], [facility] [phone] * All inclusive PAP IG CT/NG/TV HPV (11/09/2023 4:08 PM CDT) Case Report Gynecologic Cytology Report ? Case: [id number] ? Authorizing Provider: ??Berna Araiza MD ? Collected: ? 11/09/2023 04:08 PM ? Ordering Location: ? [facility] - ??Received: ?11/10/2023 01:03 PM ? VOICE DATA COMMUNICATIONS ENGINEER ? First Screen: ?Gael Cameron CT(ASCP) ? [...] 1:01 PM CDT [facility] Interpretation MOVERS Negative for intraepithelial lesion or malignancy. 11/11/2023 1:01 PM [facility] Pap Footnote The Pap Smear is a screening test. False positive and false negative results occur. Negative results do not preclude abnormalities, thus clinical correlation is required. This specimen was evaluated by the ThinPrep Imaging System along with an additional manual rescreening by a blunger and/or pathologist. 11/11/2023 1:01 PM CDT [facility] Embedded Images 1:01 PM CDT [facility] Pathology/Cytolo gy MISCELLANEOUS SAMPLES / Unknown 11/09/2023 4:08 PM CDT 11/10/2023 1:03 PM CDT Berna Araiza MD LAB - PATHOLOGY/CYTO LOGY ORDERABLES Performing Organization Address [facility] Co de Phone Number [facility] [address] [facility] [place] [address], [facility] [phone] * (ABNORMAL) [facility] VAGINOSIS/VAGINITIS PLUS (10/21/2023 3:00 PM CDT) Only the most recent of2 resultswithin the time period is included. Sureab Bacterial Vaginosis NEGATIVE NEGATIVE [facility] Darryl species DETECTED(A) NOT DETECTED [facility] Darryl glabrata YUE NOT DETECTED NOT DETECTED [facility] Comment: Darryl species C. albicans, C. tropicalis, C. parapsilosis, and/or C. dubliniensis can be detected, but not differentiated, in the Darryl spp. result. Trichomonas vaginalis TMA NOT DETECTED NOT DETECTED [facility] Chlamydia trachomatis RNA NOT DETECTED NOT DETECTED [facility] GC RNA NOT DETECTED NOT DETECTED [facility] Comment: For additional information, please refer to https://education.[employer]/faq/OJM064 (This link is being provided for information/ educational purposes only.) NO COLLECTION DATE RECEIVED. WE HAVE USED THE DATE THE SPECIMEN WAS RECEIVED BY THIS LABORATORY THE COLLECTION DATE. IF THIS IS INCORRECT, PLEASE CONTACT CLIENT SERVICES. PHONE NUMBER: [phone] Test Performed at: [facility]Work[address] ??[phone] JORGE LUTHER MD Microbiology VAGINAL SWAB / Unknown 10/21/2023 4:44 AM CDT Lucero Shirley APRN-RENNY LAB - MICROBIOLOGY ORDERABLES Performing Organization Address City/[facility]/ZIP Co de Phone Number [facility] [address] [place] [address] * MS COLPOSCOPY,BX CERVIX/ENDOCERV CURR (12/28/2022 2:43 PM CDT) Narrative Berna Araiza MD - 12/28/2022 2:43 PM CDBerna Hernandez MD ? 12/28/2022 ??2:46 PM [facility] DEPARTMENT OF OBSTETRICS AND GYNECOLOGY CERVICAL DYSPLASIA EVALUATION Cy Hernandez Allergies Allergen Reactions ? ? Dust Mite Extract Rhinitis 27 year old Patient's last menstrual period was 11/30/2022 (approximate). RACE: AA CONTRACEPTION: OCP REFERRING: Jose G MOST SEVERE CYTOLOGY: DATE: 11/04/2022 DIAGNOSIS: ASCUS, +HPV ??16 neg, 18/45 positive Chief Complaint Patient presents with ? ? Colposcopy PERTINENT HX: 11/08/2019: ??pap neg, no EC component, +inflammation ??repeat 2020 heavy yeast 09/04/20 Pap 09/04/20: neg wtih yeast, Gc/chl/trich neg (heayv yeast on JOSE day of visit) 01/07/21: ??fungus culture + darryl albicans, pansens pap 11/04/22: ??ASCUS, +HPV, 16 lamberto, 18/45 + Reviewed procedure, informed consent signed. ?? Cervix dabbed with 5% acetic acid. ??Focal acetowhite without punctation or mosaicism at 1:00 and 8:00, no extension into canal Cervix stained with Lugol's to assess cervix/fornices/upper vaginal jaime ENTIRE TZ SEEN: Yes # QUADRANTS WITH ABNORMALITIES: 2 CLINICAL IMPRESSION: AQUILES 1 Biopsy 8:00, 1:00, ECC Good hemostasis with small amount of Monsel's solution. Postop instructions reviewed verbally and in writing. Berna Araiza MD Benra Araiza MD PROCEDURE/MINOR SURG ICAL ORDERABLES * HCG URINE QUALITATIVE - POCT (IP) [facility] (12/28/2022 2:40 PM CDT) Test Urine Negative Negative [facility] [address] Urine URINE / Unknown 12/28/2022 2 :40 PM CDT Berna Araiza MD LAB - POINT OF CARE ORDERABLES [facility] [address] [place] [address], [facility] [phone] * PATHOLOGY TISSUE (12/28/2022 2:38 PM CDT) Case Report Surgical Pathology Report ? Case: [id number] ? Authorizing Provider: ??Berna Araiza MD ? Collected: ? 12/28/2022 02:38 PM ? Ordering Location: ? [facility] - ??Received: ?12/29/2022 12:26 PM ? [facility] ? Pathologist: ? Willy Horton MD ? Specimens: ?? A) - Cervix, BX 8 oclk ? B) - Cervix Biopsy, BX 1 oclk ? C) - Endocervix Curettings, ECC ? 01/05/2023 5:45 PM [facility] Final Diagnosis Cervix, 8 o'clock, biopsy (A): - Detached fragments of endocervical mucosa with acute and chronic inflammation and microglandular hyperplasia - No dysplasia or malignancy identified Cervix, 1 o'clock, biopsy (B): - Detached fragments of endocervical mucosa and squamous epithelium with acute and chronic inflammation, microglandular hyperplasia and reactive changes - No dysplasia or malignancy identified Endocervix, curettings (C): - Fragments of unremarkable endocervical glandular epithelium - No dysplasia or malignancy identified 01/05/2023 5:45 PM [facility] Microscopic Description and Comment Microscopic examination substantiates the final diagnosis. 01/05/2023 5:45 PM [facility] Clinical History The patient is a 27-year-old woman with ASC-US and positive HPV. 01/05/2023 5:45 PM [facility] Gross Description The requisition and specimen(s) are identified with the patient's name, Cy Hernandez. Received in formalin, specimen A, BX 8 oclk are multiple fragments of weinberg-brown tissue admixed with mucoid material, 1.0 x 1.0 x 0.2 cm in aggregate. Specimen is submitted in toto in cassette A1. Received in formalin, specimen B, BX 1 oclk are multiple fragments of weinberg-brown tissue, 1.0 x 0.6 x 0.2 cm in aggregate. Specimen is submitted in toto in cassette B1. Received in formalin, specimen C, ECC are multiple fragments of weinberg-brown tissue admixed with minimal mucoid material, 3.0 x 0.5 x 0.1 cm in aggregate. Specimen is submitted in toto in cassette C1. [place] 01/05/2023 5:45 PM CDT [facility] Pathologist Location at [facility] 01/05/2023 5:45 PM CDT [facility] Disclaimer The performance characteristics of all immunohistochemical and indirect immunofluorescence stains (if any) cited in this report were determined by the Histopathology Laboratory of [facility]. Some of these tests were developed by our own laboratory and have not been cleared or approved by the US Food and Drug Administration. The FDA does not require this test to go through premarket FDA review. These tests are used for clinical purposes. They should not be regarded as investigational or for research. This laboratory is certified under the Clinical Laboratory Improvement Amendments (CLIA) as qualified to perform high complexity clinical laboratory testing. This case has been personally reviewed and interpreted by the attending (teaching) pathologist. 01/05/2023 5:45 PM CDT [facility] Embedded Images 01/05/2023 5:45 PM CDT [facility] Pathology/Cytology CURETTINGS / Unknown 12/28/2022 2:38 PM CDT 12/29/2022 12:26 PM CDT Miscellaneous samples (specimen) CERVICAL BIOPSY SPECIMEN / Unknown 12/28/2022 2:38 PM CDT 12/29/2022 12:26 PM CDT Miscellaneous samples (specimen) CURETTINGS / Unknown 12/28/2022 2:38 PM CDT 12/29/2022 12:26 PM CDT Berna Araiza MD LAB - PATHOLOGY/CYTO LOGY ORDERABLES Performing Organization Address [facility]/State/[facility] Phone Number [facility] [address] [phone] * (ABNORMAL) HPV GENOTYPES 16,18/45 (11/04/2022 10:30 AM CDT) Human papillomavirus Genotype 16 by TMA Not detected Not detected 11/18/2022 11:24 AM CDT [facility] Human papillomavirus Genotype 18/45 by TMA Detected(A) Not detected 11/18/2022 11:24 AM CDT [facility] Pathology/Cytolo gy MISCELLANEOUS SAMPLES / Unknown 11/04/2022 10:30 AM CDT 11/12/2022 3:09 PM CDT Narrative [facility] - 11/18/2022 11:24 AM CDT This test detects E6/E7 viral messenger RNA of high-risk HPV types 16, 18, 31, 33, 35, 39, 45, 51, 52, 56, 58, 59, 66, and 68 associated with cervical cancer and its precursor lesions. Cross-reactivity with low risk HPV genotypes 26, 67, 70, and 82 may occur. Sensitivity may be affected by specimen collection methods, stage of infection, and the presence of interfering substances. Results should be interpreted in conjunction with other available laboratory and clinical data. Berna Araiza MD LAB - MICROBIOLOGY O [facility] [address] [facility] [place] [address], [facility] [phone] * PAP IMAGE-GUIDED RFLX HPV+CT/NG+TRICH (11/04/2022 10:30 AM CDT) Only the most recent of3 resultswithin the time period is included. Case Report Gynecologic Cytology Report ? Case: [id number] ? Authorizing Provider: ??Berna Araiza MD ? Collected: ? 11/04/2022 10:30 AM ? Ordering Location: ? [facility] - ??Received: ?11/05/2022 11:58 AM ? [facility] ? First Screen: ?Ulices Brown ? Pathologist: ? Liu Aguillon MD ? Specimen: ?THINPREP - IMAGE GUIDED, Cervix/Endocervix ? 11/12/2022 3:09 PM CDT [facility] LMP 10/25/2022 11/12/2022 3:09 PM CDT [facility] Menstrual Status Oral Contraceptives 11/12/2022 3:09 PM CDT [facility] Specimen Adequacy Satisfactory for evaluation, endocervical/trans formation zone component present. 11/12/2022 3:09 PM CDT [facility] Categorization Epithelial cell abnormality. 11/12/2022 3:09 PM CDT [facility] Interpretation MOVERS Atypical squamous cells of undetermined significance (ASC-US). 11/12/2022 3:09 PM [facility] Pap Footnote The Pap Smear is a screening test. False positive and false negative results occur. Negative results do not preclude abnormalities, thus clinical correlation is required. This specimen was evaluated by the ThinPrep Imaging System along with an additional manual rescreening by a blunger and/or pathologist. 11/12/2022 3:09 PM CDT [facility] Embedded Images 3:09 PM CDT [facility] PATHOLOGY LAB Pathology/Cytolo gy MISCELLANEOUS SAMPLES / Unknown 11/04/2022 10:30 AM CDT 11/05/2022 11:58 AM CDT Berna Araiza MD LAB - PATHOLOGY/CYTO LOGY ORDERABLES Performing Organization Address [facility] de Phone Number [facility] [address] [facility] [place] [address], [facility] [phone] * (ABNORMAL) CULTURE FUNGUS OTHER+FUNGUS SMEAR (01/07/2021 2:16 PM CDT) Only the most recent of3 resultswithin the time period is included. Smear (A) [facility] Comment: ??CULTURE, FUNGUS W/SMEAR NOT HAIR, SKIN, BLOOD ?Micro Number: ?[id number] ??Test Status: ? Final ??Specimen Source: ?? Vaginal ??Specimen Quality: ??Adequate ??Smear: ? No fungal elements seen. ??Result: ?Darryl albicans ? Isolate forwarded to [employer] [facility] [employer] for Susceptibility Testing. Test Performed at: [facility] ??[phone] JORGE LUTHER MD Microbiology VAGINAL SWAB / Unknown 01/07/2021 2:16 PM CDT 01/08/2021 3:40 AM CDT Berna Araiza MD LAB - MICROBIOLOGY O RDERABLES Performing Organization Address [facility] Co de Phone Number [facility] [address] [place] [address] * SUSCEPTIBILITY YEAST (01/07/2021 2:16 PM CDT) Source VAGINAL [facility] Organism ID DARRYL ALBICANS [facility] Amphotericin B 0.250 mcg/mL [facility] Anidulafungin 0.060 S mcg/mL [facility] Caspofungin 0.060 S mcg/mL [facility] Fluconazole 0.500 S mcg/mL [facility] 5-Flucytosine 0.120 mcg/mL [facility] Itraconazole 0.030 mcg/mL [facility] Micafungin <=0.008 S mcg/mL [facility] Posaconazole 0.030 mcg/mL [facility] Voriconazole <=0.008 S mcg/mL [facility] Comment See below [facility] Comment: Drug concentrations are expressed in mcg/mL. S = Susceptible S-DD = Susceptible-Dose Dependent I = Intermediate R = Resistant Susceptible Dose Dependent (S-DD): susceptibility is dependent on achieving maximum blood levels. SHELBY interpretations are based on recently published CLSI guidelines. Only the SHELBY value is reported when CLSI guidelines are not available. This test was performed using a kit that has not been cleared or approved by the FDA. The analytical performance characteristics of this test have been determined by [employer]. This test should not be used for diagnosis without confirmation by other medically established means. Test Performed at: [facility] [address] [place] [address] ??[phone] SAMANTHA GARCÍA MD 01/07/2021 2:16 PM CDT 01/08/2021 3:40 AM CDT Berna Araiza MD [facility]OLOGY [facility] [address] [address] * CULTURE URINE (02/23/2018 8:00 PM [employer]) Only the most recent of5 resultswithin the time period is included. Culture [facility] Comment: ??CULTURE, URINE, ROUTINE ?MICRO NUMBER: ?[id number] ??TEST STATUS: ? FINAL ??SPECIMEN SOURCE: ?? URINE, CLEAN CATCH ??SPECIMEN QUALITY: ??ADEQUATE ??RESULT: ?No Growth NO COLLECTION DATE RECEIVED. WE HAVE USED THE DATE THE SPECIMEN WAS RECEIVED BY THIS LABORATORY THE COLLECTION DATE. IF THIS IS INCORRECT, PLEASE CONTACT CLIENT SERVICES. PHONE NUMBER: [phone] Test Performed at: [facility] ??[phone] JORGE LUTHER MD Urine URINE SPECIMEN OBTAINED BY CLEAN CATCH PROCEDURE / Unknown 02/23/2018 1:36 AM [employer] Natali Alvarez [facility]IGH[facility] - SHE[place]BY ROBIOLOGY ORDERABLES Performing Organization Address [facility]/ZIP Co de Phone Number [facility] [phone] [place] [address] * URINALYSIS - POINT OF CARE (02/22/2018) Only the most recent of2 resultswithin the time period is included. Clarity UA POCT non-cloudy Color UA POCT yellow Leukocyte UA neg Negative Nitrite UA POCT neg Negative Urobilinogen UA 0.1 0.1 - 1.0 Protein UA POCT neg Negative pH UA 6.0 5.0 - 8.0 pH units Blood UA neg Negative Specific [place] UA POCT 1.015 1.002 - 1.030 Ketone UA negh Negative Bilirubin UA POCT neg Negative Glucose UA neg Negative Urine URINE / Unknown 02/22/2018 Natali Alvarez APRNBRIGHAM AND [facility] LAB - POI NT OF CARE ORDERABLES * CHLAMYDIA+GC YUE PAP VIAL (12/09/2015) Pathologist [facility] Chlamydia trachomatis RNA TMA NOT DETECTED NOT DETECTED [facility] ([facility]) Neisseria gonorrhoeae RNA TMA NOT DETECTED NOT DETECTED [facility] ([facility]) See Note [facility] ([facility]) Comment: This test was performed using the APTIMA COMBO2 Assay ([employer] The analytical performance characteristics of this assay, when used to test SurePath specimens have been determined by [employer]. ?? Test Performed at: [facility] [address] [place], [place] ??[phone] MICHEL CHAMPION DO,MPH Cervical swab (specimen) 12/09/2015 12/10/2015 9:05 AM CDT Narrative [facility] ([facility]) - 12/11/2015 9:00 AM CDT Specimen Type->Cervical swab Berna Araiza MD LAB - MICROBIOLOGY O RDERABLES [facility] ([facility]) * BASIC METABOLIC PANEL (CALCIUM TOTAL) (06/28/2015 5:06 PM CDT) Only the most recent of5 resultswithin the time period is included. Glucose 76 70 - 105 mg/dL 06/28/2015 7:06 PM T [facility] Sodium 138 136 - 145 mmol/L 06/28/2015 7:06 PM T [facility] Potassium 3.8 3.5 - 5.1 mmol/L 06/28/2015 7:06 PM T [facility] Chloride 106 98 - 107 mmol/L 06/28/2015 7:06 PM T [facility] CO2 24 20 - 28 mmol/L 06/28/2015 7:06 PM T [facility] Calcium 10.14 9.08 - 10.48 mg/dL 06/28/2015 7:06 PM T [facility] Anion Gap 8 5 - 20 mmol/L 06/28/2015 7:06 PM T [facility] BUN 11.1 5.3 - 18.7 mg/dL 06/28/2015 7:06 PM T [facility] Creatinine 0.72 0.61 - 1.07 mg/dL 06/28/2015 7:06 PM T [facility] eGFR by MDRD >60 mL/min/1.7 3m2 06/28/2015 7:06 PM T [facility] Comment: eGFR calculations are not performed for children under 18 years old. eGFR by MDRD >60 mL/min/1.7 3m2 06/28/2015 7:06 PM T [facility] Comment: eGFR calculations are not performed for children under 18 years old. Blood BLOOD SPECIMEN / Unknown Lab Venipuncture / Unknown 06/28/2015 5:06 PM CDT 06/28/2015 6:31 PM CDT Gael Santana MD LAB - CHEMISTRY JACKY LEONARDO [facility] [address] [place] [address] * URINALYSIS - POINT OF CARE (AMB) [facility] (01/28/2015) Glucose UA n [facility] Bilirubin UA POCT n [facility] Ketones UA POCT n [facility] Specific [place] UA 1.020 [facility] Blood Urine POCT n [facility] pH UA 5 [facility] Protein UA trace [facility] Urobilinogen UA n [facility] Nitrite UA n [facility] WBC UA n [facility] Urine specimen (specimen) 01/28/2015 Berna Araiza MD LAB - POINT OF CARE ORDERABLES [facility] * LAB RESULTS ORDER (12/14/2014 3:04 PM CDT) Only the most recent of6 resultswithin the time period is included. Narrative 12/14/2014 3:04 PM CDT Ordered by an unspecified provider. Scanned Document LAB - THERAPEUTIC DR STRONG MONITORING ORDERABLES * [facility] PEDIATRIC (05/02/2014 4:08 PM [employer]) [facility] Pediatric 4.93 0.64 - 10.98 mIU/mL [facility] ([facility]) Comment: Female Pediatric Reference Ranges for [facility]SH: 5-9 ?? years: 0.72-5.33 mIU/mL 10-13 years: 0.87-9.16 mIU/mL 14-17 years: 0.64-10.98 mIU/mL This test was developed and its performance characteristics have been determined by [employer] [facility]. Performance characteristics refer to the analytical performance of the test. Test Performed at: [facility]/[address] [address] [place], [place] ??[phone] ELLIE KIMBLE MD PHD Serum 05/02/2014 4:08 PM [employer] 05/02/2014 4:09 PM [employer] Berna Araiza MD LAB - CHEMISTRY JACKY LEONARDO [facility] ([facility]) * LH PEDIATRIC (05/02/2014 4:08 PM [employer]) LH 8.09 0.97 - 14.70 mIU/mL [facility] ([facility]) Comment: Female Reference Ranges for LH (Luteinizing ??Hormone), Pediatric: ?Females: ?3-7 years ?< or = 0.26 mIU/mL ?8-9 years ?< or = 0.69 mIU/mL ? 10-11 years ? < or = 4.38 mIU/mL ? 12-14 years ? 0.04-10.80 mIU/mL ? 15-17 years ? 0.97-14.70 mIU/mL ?Gabriele Stages ? I ? < or = 0.15 mIU/mL ?II ? < or = 2.91 mIU/mL ? III ? < or = 7.01 mIU/mL ?IV-V ?0.10-14.70 mIU/mL This test was developed and its performance characteristics have been determined by [employer] [facility]. Performance characteristics refer to the analytical performance of the test. Test Performed at: [facility]/[address] [address] [place] ??[phone] ELLIE KIMBLE MD PHD 05/02/2014 4:08 PM [employer] 05/02/2014 4:09 PM [employer] Berna Araiza MD LAB - CHEMISTRY JACKY LEONARDO [facility]) * CHLAMYDIA + GC RNA (05/02/2014 4:08 PM [employer]) Pathologist [facility] Chlamydia trachomatis RNA TMA NOT DETECTED NOT DETECTED [facility] ([facility]) Neisseria gonorrhoeae RNA TMA NOT DETECTED NOT DETECTED [facility] ([facility]) See Note [facility] ([facility]) Comment: This test was performed using the APTIMA COMBO2 Assay ([employer] The analytical performance characteristics of this assay, when used to test SurePath specimens have been determined by [employer]. ?? Test Performed at: [facility]ITALWork[facility] ??[phone] MICHEL CHAMPION DO,MPH 05/02/2014 4:08 PM [employer] 05/02/2014 4:09 PM [employer] Berna Araiza MD LAB - MICROBIOLOGY O RDERABLES [facility] ([facility]) * (ABNORMAL) HEMOGLOBIN A1C (05/02/2014 4:08 PM [employer]) Pathologist [facility] Hemoglobin A1c 5.8(H) <5.7 % of total Hgb [facility] ([facility]) Comment: According to ADA guidelines, hemoglobin A1c <7.0% represents optimal control in non- diabetic patients. Different metrics may apply to specific patient populations. Standards of Medical Care in Diabetes-2013. Diabetes Care. 2013;36:s11-s66 For the purpose of screening for the presence of diabetes <5.7% ? Consistent with the absence of diabetes 5.7-6.4% ?Consistent with increased risk for diabetes ?(prediabetes) >or=6.5% ?Consistent with diabetes This assay result is consistent with an increased risk of diabetes. Currently, no consensus exists for use of hemoglobin A1c for diagnosis of diabetes for children. Test Performed at: [facility]ITAL[facility] ??[phone] MICHEL CHAMPION DO,MPH Blood specimen (specimen) BLOOD SPECIMEN / Unknown 05/02/2014 4:08 PM [employer] 05/02/2014 4:09 PM [employer] Berna Araiza MD LAB - CHEMISTRY JACKY LEONARDO Performing Organization Address [facility] Phone Number [facility]) * ESTRADIOL (05/02/2014 4:08 PM [employer]) Only the most recent of2 resultswithin the time period is included. Estradiol 53 pg/mL [facility] ([facility]) Comment: ?Reference Range ?Follicular Phase: ?19-144 ?Mid-Cycle: ? 64-357 ?Luteal Phase: ?56-214 ?Post-Menopausal: ? < or = 31 ? Reference range established on post-pubertal patient population. No pre-pubertal reference range established using this assay. For any patients for whom low Estradiol levels are anticipated (e.g. males, pre-pubertal children and hypogonadal/post-menopausal females), the [employer] [facility] Estradiol, Ultrasensitive, LCMSMS assay is recommended (order code 26393). ?? Test Performed at: [facility]OSPITALPrec[facility] [address] [place], [place] ??[phone] MICHEL CHAMPION DO,MPH Blood specimen (specimen) BLOOD SPECIMEN / Unknown 05/02/2014 4:08 PM [employer] 05/02/2014 4:09 PM [employer] Berna Araiza MD LAB - CHEMISTRY JACKY LEONARDO Performing Organization Address [facility] de Phone Number [facility]) * (ABNORMAL) TESTOSTERONE TOTAL FEM/CHLD HYPOGNDL MALE (05/02/2014 4:08 PM [employer]) Pathologist [facility] Testosterone 46(H) <41 ng/dL [facility] ([facility]) Comment: ??Pediatric Reference Ranges by Pubertal Stage for Testosterone, Total, LC/MS/MS (ng/dL): ??Gabriele Stage ?Males ?Females ??Stage I ? 5 or less ? 8 or less ??Stage II ?167 or less ?24 or less ??Stage III ? 21-719 ? 28 or less ??Stage IV ?25-912 ? 31 or less ??Stage V ? 110-975 ?33 or less Test Performed at: [facility] [address] [place], [place] ??[phone] PEPITO COX MD,FCAP Serum 05/02/2014 4:08 PM [employer] 05/02/2014 4:09 PM [employer] Berna Araiza MD LAB - CHEMISTRY JACKY LEONARDO [facility] ([facility]) * (ABNORMAL) CBC W AUTO DIFFERENTIAL (04/27/2014 4:51 PM [employer]) Only the most recent of4 resultswithin the time period is included. WBC 10.2 4.5 - 14.5 x10^9/L 04/27/2014 5:20 PM [facility] RBC 5.51(H) 4.10 - 5.10 x10^12/L 04/27/2014 5:20 PM [facility] Hemoglobin 13.7 12.0 - 16.0 gm/dL 04/27/2014 5:20 PM [facility] Hematocrit 40.3 36.0 - 47.0 % 04/27/2014 5:20 PM [facility] MCV 73.1(L) 78.0 - 98.0 fl 04/27/2014 5:20 PM [facility] MCH 24.9(L) 25.0 - 35.0 pg 04/27/2014 5:20 PM [facility] MCHC 34.0 31.0 - 37.0 gm/dL 04/27/2014 5:20 PM [facility] Platelet Count 307 100 - 400 x10^9/L 04/27/2014 5:20 PM [facility] RDW-CV 13.8 11.5 - 14.0 % 04/27/2014 5:20 PM [facility] MPV 11.5(H) 6.0 - 9.5 fl 04/27/2014 5:20 PM [facility] Neutrophils % 62.5 24.0 - 66.0 % 04/27/2014 5:20 PM [facility] Lymphocytes % 28.8 22.0 - 61.0 % 04/27/2014 5:20 PM [facility] Monocytes % 7.3 3.0 - 15.0 % 04/27/2014 5:20 PM [facility] Eosinophils % 0.6 0.0 - 10.0 % 04/27/2014 5:20 PM [facility] Basophils % 0.3 % 04/27/2014 5:20 PM [facility] Immature Granulocytes 0.5 % 04/27/2014 5:20 PM [facility] Neutrophil Absolute 6.37 x10^9/L 04/27/2014 5:20 PM [facility] Lymphocytes Absolute 2.93 x10^9/L 04/27/2014 5:20 PM [facility] Monocytes Absolute 0.74 x10^9/L 04/27/2014 5:20 PM [facility] Eosinophils Absolute 0.06 x10^9/L 04/27/2014 5:20 PM [facility] Basophils Absolute 0.03 x10^9/L 04/27/2014 5:20 PM [facility] Immature Granulocytes Absolute 0.05 x10^9/L 04/27/2014 5:20 PM [facility] Blood BLOOD SPECIMEN / Unknown Lab Venipuncture / Unknown 04/27/2014 4:51 PM [facility] 04/27/2014 5:12 PM [facility] Gael Santana MD LAB - HEMATOLOGY ORD ERABLES [facility] [address] [place] [address] * EKG 15-LEAD (04/27/2014 4:27 PM [facility]) Ventricular Rate 110 BPM CG MUSE Atrial Rate 110 BPM CG MUSE P-R Interval 134 ms CG MUSE QRS Duration ms 82 ms CG MUSE Q-T Interval ms 304 ms CG MUSE QTC Calculation (Bezet) 406 ms CG MUSE Calculated P [place] 64 degrees CG MUSE Calculated R [place] 49 degrees CG MUSE Calculated T [place] 34 degrees CG MUSE Interpretation EKG Sinus tachycardia Nonspecific T wave abnormality No previous ECGs available Confirmed by MD Garcia Susan ([id number]) on 04/27/2014 4:37:18 PM CG MUSE 04/27/2014 4:27 PM [employer] 04/27/2014 4:37 PM [employer] Gael Santana MD ECG ORDERABLES M[facility] * (ABNORMAL) URINALYSIS - POCT (IP) UZMA (04/27/2014 4:05 PM [employer]) Only the most recent of4 resultswithin the time period is included. Glucose UA Negative Negative [facility] POC T TESTING Bilirubin UA Negative Negative [facility] P OCT TESTING Ketone UA Negative Negative [facility] POCT TESTING Specific [place] UA POCT 1.020 1.000 - 1.030 [facility] POCT TESTING Blood UA Negative Negative [facility] POCT TESTING pH UA 7.0 5.0 - 8.0 pH units [facility] POCT TESTING Protein UA Negative Negative [facility] POC T TESTING Urobilinogen UA 0.2 0.2 - 1.0 EU/dL [facility] POCT TESTING Nitrite UA Negative Negative [facility] POC T TESTING Leukocyte UA Trace Negative [facility] P OCT TESTING QC Verified Yes Yes [facility] PO CT TESTING Urine specimen (specimen) URINE / Unknown 04/27/2014 4:05 PM [employer] Gael Santana MD LAB - POINT OF CARE ORDERABLES [facility] POCT TESTING [address] [place] [address], [facility] * THYROID PEROXIDASE ANTIBODY (06/07/2013 3:55 PM CDT) Thyroid Peroxidase TPO Antibody 25 <35 IU/mL [facility] ([facility]) Comment: Test Performed at: [facility] [place] [address] [place], [place] ??[phone] MICHEL CHAMPION DO,MPH 06/07/2013 3:55 PM CDT 06/07/2013 3:55 PM CDT Berna Araiza MD LAB - CHEMISTRY JACKY LEONARDO Performing Organization Address [facility] de Phone Number [facility] ([facility]) * (ABNORMAL) TSH (06/07/2013 3:55 PM CDT) TSH 4.80(H) mIU/L [facility] ([facility]) Comment: ? Reference Range ? 1-19 Years 0.50-4.30 ? Ranges ? First trimester ?? 0.26-2.66 ? Second trimester ??0.55-2.73 ? Third trimester ?? 0.43-2.91 Test Performed at: [facility] [address] ??[phone] MICHEL CHAMPION DO,MPH Venous blood specimen (specimen) 06/07/2013 3:55 PM CDT 06/07/2013 3:55 PM CDT Berna Araiza MD LAB - CHEMISTRY JACKY LEONARDO Performing Organization Address [facility] de Phone Number [facility] ([facility]) * T4 FREE (06/07/2013 3:55 PM CDT) T4 Free 1.2 0.9 - 1.4 ng/dL [facility] ([facility]) Comment: Test Performed at: [facility] [address] ??[phone] MICHEL CHAMPION DO,MPH Venous blood specimen (specimen) 06/07/2013 3:55 PM CDT 06/07/2013 3:55 PM CDT Berna Araiza MD LAB - CHEMISTRY JACKY LEONARDO Performing Organization Address [facility] de Phone Number [facility] ([facility]) * T4 TOTAL (06/07/2013 3:55 PM CDT) T4 Total 10.1 4.5 - 12.0 mcg/dL [facility] ([facility]) Comment: Test Performed at: [facility] [place] [address] [place], [place] ??[phone] MICHEL CHAMPION DO,MPH Venous blood specimen (specimen) 06/07/2013 3:55 PM CDT 06/07/2013 3:55 PM CDT Berna Araiza MD LAB - CHEMISTRY JACKY LEONARDO Performing Organization Address [facility] de Phone Number [facility] ([facility]) * T3 TOTAL (06/07/2013 3:55 PM CDT) Pathologist [facility] T3 Total 109 84 - 179 ng/dL [facility] ([facility]) Comment: Test Performed at: [facility] [place] [address] [place], [place] ??[phone] MICHEL CHAMPION DO,MPH Serum 06/07/2013 3:55 PM CDT 06/07/2013 3:55 PM CDT Berna Araiza MD LAB - CHEMISTRY JACKY LEONARDO Performing Organization Address [facility] de Phone Number [facility] ([facility]) * (ABNORMAL) URINALYSIS ROUTINE AUTO (04/28/2013 3:30 PM [employer]) Only the most recent of4 resultswithin the time period is included. Color UA Yellow Straw, Yellow, Dark Yellow 04/28/2013 4:38 PM [employer] [facility] Clarity UA Clear 04/28/2013 4:38 PM [employer] [facility] Specific [place] UA 1.015 1.005 - 1.030 04/28/2013 4:38 PM [facility] pH UA 6.0 5.0 - 8.0 pH 04/28/2013 4:38 PM [facility] Protein UA Negative Negative 04/28/2013 4:38 PM [facility] Blood UA Negative Negative 04/28/2013 4:38 PM [facility] Leukocyte UA Trace(A) Negative 04/28/2013 4:38 PM [facility] Nitrite UA Negative Negative 04/28/2013 4:38 PM [facility] Glucose UA Negative Negative 04/28/2013 4:38 PM [facility] Ketone UA Negative Negative 04/28/2013 4:38 PM [facility] Bilirubin UA Negative Negative 04/28/2013 4:38 PM [facility] Urobilinogen UA 0.2 0.1 - 1.0 EU/dL 04/28/2013 4:38 PM [facility] Urine URINE SPECIMEN OBTAINED BY CLEAN CATCH PROCEDURE / Unknown 04/28/2013 3:30 PM [facility] 04/28/2013 4:04 PM [facility] Gael Santana MD LAB - URINALYSIS ORD ERABLES [facility] [facility] [place] [address] * (ABNORMAL) URINALYSIS MICROSCOPIC ONLY (04/28/2013 3:30 PM [facility]) Only the most recent of2 resultswithin the time period is included. RBC UA 0-2 0-2, 2-5 # /hpf 04/28/2013 4:38 PM [facility] WBC UA 0-2 0-2, 2-5 # /hpf 04/28/2013 4:38 PM [facility] Bacteria UA 1+(A) None Seen, Trace 04/28/2013 4:38 PM [facility] Epithelial Cell UA 0-2 0-2, 2-5 04/28/2013 4:38 PM [facility] Mucus UA 04/28/2013 4:38 PM [facility] Comment:Trace Urine URINE SPECIMEN OBTAINED BY CLEAN CATCH PROCEDURE / Unknown 04/28/2013 3:30 PM [employer] 04/28/2013 4:04 PM [employer] Gael Santana MD LAB - URINALYSIS ORD ERABLES [facility] [place] [address] * US KIDNEY [[id number]] (11/20/2011 9:42 AM CDT) Anatomical Region Laterality Modality Abdomen Ultrasound 11/20/2011 11:5 1 AM CDT Impressions 11/20/2011 11:51 AM CDT Normal renal ultrasound. Narrative 11/20/2011 11:51 AM CDT EXAMINATION: Renal ultrasound dated ??Nov 20, 2011 09:42:36 AM. HISTORY: ??Urinary Tract Infection. FINDINGS: ??Multiple, real-time images are obtained. Comparison is made to the prior examination of September 2008. ??The right kidney measures 11.0 cm in length, and the left kidney measures 11.8 cm in length. ??Renal cortical echogenicity is normal. ??No hydronephrosis, masses, or stones are seen. ??The urinary bladder is ??incompletely distended and grossly normal. Procedure Note Pablo Brown - 11/20/2011 EXAMINATION: Renal ultrasound dated Nov 20, 2011 09:42:36 AM. HISTORY: Urinary Tract Infection. FINDINGS: Multiple, real-time images are obtained. Comparison is made to the prior examination of September 2008. The right kidney measures 11.0 cm in length, and the left kidney measures 11.8 cm in length. Renal cortical echogenicity is normal. No hydronephrosis, masses, or stones are seen. The urinary bladder is incompletely distended and grossly normal. IMPRESSION Normal renal ultrasound. Gael Santana MD US ORDERABLES * ECHO CONSULT - PEDIATRIC (11/20/2011 9:00 AM CDT) 11/20/2011 9:00 AM CDT Narrative [facility] - 11/20/2011 9:57 AM CDT , Transthoracic Echocardiogram 2D, M-mode, Doppler, and Color Doppler Name: CY HERNANDEZ MR #: [id number] Study date: 11/20/2011 Age: 16 years : 1995 Gender: Female Ht: 63.7 in / 161.7 cm Wt: 180.8 lb / 82.2 kg BSA: 1.87 m?? HR: BP: / age: NEAL: Maternal age: SCRUM PRODUCT OWNER: ??Ernie Richardson MD Indications: Hypertension. Allergies: OXYMETAZOLINE HCL History: Signs/symptoms include murmur. Procedure: The procedure was performed in the echo lab. Anatomic relationships: Visceral situs: normal. Left sided cardiac apex (levocardia). Normal atrial situs (atrial situs solitus). Concordant atrioventricular alignment. Ventricular d-loop. Normal infundibular anatomy. Concordant ventriculoarterial connection. Normally related great vessels. Systemic veins: SVC: The superior vena cava and left innominate vein appeared of normal caliber, with normal flow. IVC: The inferior vena cava was normal in size and course. IVC Doppler: The flow pattern was normal. Pulmonary veins: The pulmonary veins drained normally to the left atrium. Doppler: Doppler flow pattern was normal in the pulmonary vein(s). Right atrium: Size was normal. Left atrium: Size was normal. Atrial septum: No defect or patent foramen ovale was identified. Tricuspid valve: The valve structure was normal. Doppler: The transtricuspid velocity was within the normal range. There was no evidence for tricuspid stenosis. There was no regurgitation. Mitral valve: Valve structure was normal. There is no mitral valve prolapse. Doppler: The transmitral velocity was within the normal range. There was no evidence for stenosis. There was no regurgitation. Right ventricle: The cavity size was normal. Wall thickness was normal. Systolic function was normal. RV outflow tract: There was no obstruction. Left ventricle: The cavity size was normal. Wall thickness was normal. Systolic function was normal. There were no regional wall motion abnormalities. Doppler: Left ventricular diastolic function parameters were normal. LV outflow tract: There was no outflow obstruction. Ventricular septum: Localized area of mildly increased septal thickness (13 mm) in the subaortic region; non-obstructive. Routine cardiology follow-up recommended. Thickness was normal. The septum was intact. Pulmonic valve: Leaflets exhibited normal thickness and normal cuspal separation. Doppler: The transpulmonic velocity was within the normal range. Aortic valve: The valve was trileaflet. Leaflets exhibited normal thickness and normal cuspal separation. Doppler: Transaortic velocity was within the normal range. There was no stenosis. There was no regurgitation. Pulmonary artery: The main pulmonary artery was normal, with normal-sized, confluent proximal branch pulmonary arteries. Aorta: There was a normal-sized aortic arch with normal brachiocephalic branching. The root was normal in size. The ascending aorta size was normal. Coronary arteries: The size and course of the left main, proximal left anterior descending, and proximal right coronary arteries were normal. Right coronary artery: Flow was normal. Left main coronary artery: Flow was normal. Left anterior descending: Flow was normal. Extracardiac shunting: No ductal shunt was detected by Doppler. Pericardium: There was no pericardial effusion. The pericardium was normal in appearance. Impressions: - ??Diagnoses: Normal cardiac anatomy and function. Localized area of mildly increased thickness of the ventricular septum as described below. - ??Ventricular septum/shunt: Localized area of mildly increased septal thickness (13 mm) in the subaortic region; non-obstructive. Routine cardiology follow-up recommended. Prepared and signed by Ernie Richardson MD Signed 11/20/2011 09:57:27 System measurement tables MM %FS: 36.6 % EDV(Teich): 100 ml EF(Teich): 66.4 % ESV(Teich): 33.6 ml IVSd: 7.9 mm IVSs: 12.5 mm LVIDd: 46.5 mm LVIDs: 29.5 mm LVPWd: 10.2 mm LVPWs: 14.8 mm LVd Mass: 163.1 g LVd Mass (ASE): 142 g LVd Mass Ind (ASE): 75.9 g/m2 LVd Mass Index: 87.2 g/m2 LVs Mass: 149.6 g LVs Mass (ASE): 131.2 g LVs Mass Ind (ASE): 70.2 g/m2 LVs Mass Index: 80 g/m2 SV(Teich): 66.4 ml Procedure Note 11/20/2011 , Transthoracic Echocardiogram 2D, M-mode, Doppler, and Color Doppler Name: CY HERNANDEZ MR #: [id number] Study date: 11/20/2011 Age: 16 years : 1995 Gender: Female Ht: 63.7 in / 161.7 cm Wt: 180.8 lb / 82.2 kg BSA: 1.87 m?? HR: BP: / age: NEAL: Maternal age: S[employer] PRODUCT OWNER: Ernie Richardson MD Indications: Hypertension. Allergies: OXYMETAZOLINE HCL History: Signs/symptoms include murmur. Procedure: The procedure was performed in the echo lab. Anatomic relationships: Visceral situs: normal. Left sided cardiac apex (levocardia). Normal atrial situs (atrial situs solitus). Concordant atrioventricular alignment. Ventricular d-loop. Normal infundibular anatomy. Concordant ventriculoarterial connection. Normally related great vessels. Systemic veins: SVC: The superior vena cava and left innominate vein appeared of normal caliber, with normal flow. IVC: The inferior vena cava was normal in size and course. IVC Doppler: The flow pattern was normal. Pulmonary veins: The pulmonary veins drained normally to the left atrium. Doppler: Doppler flow pattern was normal in the pulmonary vein(s). Right atrium: Size was normal. Left atrium: Size was normal. Atrial septum: No defect or patent foramen ovale was identified. Tricuspid valve: The valve structure was normal. Doppler: The transtricuspid velocity was within the normal range. There was no evidence for tricuspid stenosis. There was no regurgitation. Mitral valve: Valve structure was normal. There is no mitral valve prolapse. Doppler: The transmitral velocity was within the normal range. There was no evidence for stenosis. There was no regurgitation. Right ventricle: The cavity size was normal. Wall thickness was normal. Systolic function was normal. RV outflow tract: There was no obstruction. Left ventricle: The cavity size was normal. Wall thickness was normal. Systolic function was normal. There were no regional wall motion abnormalities. Doppler: Left ventricular diastolic function parameters were normal. LV outflow tract: There was no outflow obstruction. Ventricular septum: Localized area of mildly increased septal thickness (13 mm) in the subaortic region; non-obstructive. Routine cardiology follow-up recommended. Thickness was normal. The septum was intact. Pulmonic valve: Leaflets exhibited normal thickness and normal cuspal separation. Doppler: The transpulmonic velocity was within the normal range. Aortic valve: The valve was trileaflet. Leaflets exhibited normal thickness and normal cuspal separation. Doppler: Transaortic velocity was within the normal range. There was no stenosis. There was no regurgitation. Pulmonary artery: The main pulmonary artery was normal, with normal-sized, confluent proximal branch pulmonary arteries. Aorta: There was a normal-sized aortic arch with normal brachiocephalic branching. The root was normal in size. The ascending aorta size was normal. Coronary arteries: The size and course of the left main, proximal left anterior descending, and proximal right coronary arteries were normal. Right coronary artery: Flow was normal. Left main coronary artery: Flow was normal. Left anterior descending: Flow was normal. Extracardiac shunting: No ductal shunt was detected by Doppler. Pericardium: There was no pericardial effusion. The pericardium was normal in appearance. Impressions: - Diagnoses: Normal cardiac anatomy and function. Localized area of mildly increased thickness of the ventricular septum as described below. - Ventricular septum/shunt: Localized area of mildly increased septal thickness (13 mm) in the subaortic region; non-obstructive. Routine cardiology follow-up recommended. Prepared and signed by Ernie Richardson MD Signed 11/20/2011 09:57:27 System measurement tables MM %FS: 36.6 % EDV(Teich): 100 ml EF(Teich): 66.4 % ESV(Teich): 33.6 ml IVSd: 7.9 mm IVSs: 12.5 mm LVIDd: 46.5 mm LVIDs: 29.5 mm LVPWd: 10.2 mm LVPWs: 14.8 mm LVd Mass: 163.1 g LVd Mass (ASE): 142 g LVd Mass Ind (ASE): 75.9 g/m2 LVd Mass Index: 87.2 g/m2 LVs Mass: 149.6 g LVs Mass (ASE): 131.2 g LVs Mass Ind (ASE): 70.2 g/m2 LVs Mass Index: 80 g/m2 SV(Teich): 66.4 ml Gael Santana MD ECHO ORDERABLES [facility] [address] [place] [address] * (ABNORMAL) RENAL FUNCTION PANEL (10/02/2011 4:50 PM CDT) Only the most recent of4 resultswithin the time period is included. Glucose 109(H) 70 - 105 mg/dL 10/02/2011 5:52 PM CDT [facility] Sodium 141 136 - 145 mmol/L 10/02/2011 5:52 PM CDT [facility] Potassium 3.8 3.5 - 5.1 mmol/L 10/02/2011 5:52 PM T [facility] Chloride 108(H) 98 - 107 mmol/L 10/02/2011 5:52 PM T [facility] CO2 19(L) 20 - 28 mmol/L 10/02/2011 5:52 PM CDT [facility] Calcium 9.94 8.92 - 10.32 mg/dL 10/02/2011 5:52 PM T [facility] Anion Gap 14 5 - 20 mmol/L 10/02/2011 5:52 PM CDT [facility] BUN 9.6 6.1 - 21.0 mg/dL 10/02/2011 5:52 PM CDT [facility] Creatinine 0.62 0.62 - 1.00 mg/dL 10/02/2011 5:52 PM CDT [facility] Albumin 4.4 3.3 - 5.0 gm/dL 10/02/2011 5:52 PM CDT [facility] Phosphorus 3.66 2.94 - 5.67 mg/dL 10/02/2011 5:52 PM T [facility] eGFR by MDRD ml/min/1.7 3m2 10/02/2011 5:52 PM T [facility] Comment:eGFR calculations ar e not performed for children under 18 years old. eGFR by MDRD ml/min/1.7 3m2 10/02/2011 5:52 PM T [facility] Comment:eGFR calculations ar e not performed for children under 18 years old. Blood specimen (specimen) BLOOD SPECIMEN / Unknown 10/02/2011 4:50 PM CDT 10/02/2011 5:26 PM CDT Gael Santana MD LAB - CHEMISTRY JACKY LEONARDO [facility] [address] [place] [address] * URINALYSIS - POINT OF CARE (IP) (03/24/2011 11:00 AM [employer]) Only the most recent of2 resultswithin the time period is included. Glucose UA negative Negative [facility] T [facility] Bilirubin UA negative Negative [facility] P OCT TESTING Ketone UA negative Negative [facility] Specific [place] UA POCT >=1.030 1.000 - 1.030 [facility] Blood UA negative Negative [facility] pH UA 6.0 5.0 - 8.0 pH units [facility] Protein UA negative Negative [facility] T [facility] Urobilinogen UA 0.2 0.2 - 1.0 EU/dL [facility] Nitrite UA negative Negative [facility] T [facility] Leukocyte UA negative Negative [facility] OCT TEST[facility] QC Verified yes Yes [facility] PO CT TESTING Urine specimen (specimen) URINE / Unknown 03/24/2011 11:00 AM [employer] Gael Santana MD LAB - POINT OF CARE ORDERABLES Performing Organization Address City/[facility] Co de Phone Number [facility] [address] [place] [address] * DIFFERENTIAL MANUAL (12/23/2010 2:50 PM CDT) Only the most recent of2 resultswithin the time period is included. Comment Manual Diff Done [facility] Band % Manual 1 % [facility] Neutrophils % Manual 57 24 - 66 % [facility] Lymphocytes % Manual 32 22 - 61 % [facility] Monocytes % Manual 6 3 - 15 % [facility] Eosinophils % Manual 1 0 - 10 % [facility] Atypical Lymphocyte % Manual 3 % [facility] RBC Morphology Some Anisocytosis Poikylocytosis Microcytes, Moderate Ovalocytes, Occ Schistocytes [facility] BLOOD SPECIMEN / Unknown 12/23/2010 2:50 PM CDT 12/23/2010 3:22 PM CDT Gael Santana MD LAB - HEMATOLOGY ORD ERABLES Performing Organization Address City/[facility]/ZIP Co de Phone Number [facility] [address] [place] [address] * MRI BRAIN NON CONTRAST (07/24/2010 1:22 PM CDT) Anatomical Region Laterality Modality Head Magnetic Resonan ce 07/24/2010 1:47 PM CDT Impressions 07/24/2010 3:08 PM CDT Normal. D: Ginger Morris MD Narrative 07/24/2010 3:08 PM CDT MRI brain without contrast 07/24/2010 History: Headaches, hypertension. Technique: Axial: DWI, T2, T1, T2 FLAIR, ADC. Sagittal: T1 Coronal: T2 FLAIR Findings: The midline structures are central. The ventricles are neither dilated nor displaced. No abnormal signal is seen throughout the brain parenchyma. There are no extra-axial fluid collections. ??The posterior fossa contents are unremarkable. Myelination pattern is appropriate for age. The orbits, optic nerves, and optic chiasm are unremarkable. No diffusion restriction is seen. Minimal mucosal thickening is present in the left maxillary sinus, lateral wall. Remainder of the visible paranasal sinuses are clear. Procedure Note Pablo Brown - 07/24/2010 MRI brain without contrast 07/24/2010 History: Headaches, hypertension. Technique: Axial: DWI, T2, T1, T2 FLAIR, ADC. Sagittal: T1 Coronal: T2 FLAIR Findings: The midline structures are central. The ventricles are neither dilated nor displaced. No abnormal signal is seen throughout the brain parenchyma. There are no extra-axial fluid collections. The posterior fossa contents are unremarkable. Myelination pattern is appropriate for age. The orbits, optic nerves, and optic chiasm are unremarkable. No diffusion restriction is seen. Minimal mucosal thickening is present in the left maxillary sinus, lateral wall. Remainder of the visible paranasal sinuses are clear. IMPRESSION Normal. D: Ginger Morris MD Dione Parra MD MR ORDERABLES * GROSS + MICRO EXAM (1997 10:30 AM CDT) Result CASE NUMBER [id number] [facility] PATH REPORT Comment: ORDERING PHYSICIAN ??STEPHANIE SCHROEDER SPECIMEN TYPE ?Placenta CLINICAL HISTORY ? GROSS DESCRIPTION ? CLINICAL DATA ?? INFANT Gestational Age ??27 weeks Weight ??1110 grams RDS ??X Facies ?? Congenital Anomalies ?? labor - Double footling breech MOTHER Age ??29 years ? Grav ??2 ?? Para ??2 ?? Ab ?? Hypertension ?Bleeding ??X Oligohydramnios ? Infection ?? Polyhydramnios ?Previous Stillbirths ?? Labor/Duration ?Diabetes ?? Additional Comments ?? - [facility]. GROSS DESCRIPTION ?? The specimen labeled with Linh Hernandez, Cy Hernandez, and placenta is received fixed in formalin for gross and microscopic examination and consists of a placenta with attached segment of umbilical cord and separately submitted segment of umbilical cord. ??The placenta measures 14.5 x 11 cm. The placental thickness measures 2.5 cm. ??The umbilical cord segments have an aggregate measurement of 26 cm in length x 1.4 cm in diameter. ??There is a false knot of the umbilical cord and the surface is blue-fishman and dull. ??The umbilical cord attachment is eccentric and the nearest margin is 2 cm. ??There are three umbilical cord vessels. ??The membranes are torn. ??The shortest length is 5 cm and the longest length is 13.5 cm. ??The membrane appearance is fishman-weinberg and translucent. ??The membrane attachments are partially marginal and partially circummarginate. The degree of circummargination is approximately 90??. ??The surface has few fibrin plaques. ??The maternal surface is fragmented ??at one margin without associated blood clot. ??This area measures approximately 10 x 3 x 2 cm. ??Section surfaces are grossly unremarkable. ??The placental weight after trimming is approximately 260 grams. ??Director Of Assessment sections from the placenta are submitted in cassettes A1 and A2 . Director Of Assessment sections from the umbilical cord and membranes are submitted in a cassette labeled A3 . ?? (CT/hm) MICROSCOPIC DESCRIPTION ? 3 slides, H/E Sections of the umbilical cord contain two arteries and one vein. The membranes show a small area of brown pigment deposition in the deep aspect of the decidua. ??Placental villi are large with prominent cytotrophoblasts. ??Within the decidua, associated with the placenta, there is a mild chronic inflammatory infiltrate and one vessel shows fibrinoid change to its wall, along with a mild mononuclear infiltrate. ??On the surface of the placenta, there is a mild, focal, acute chorioamnionitis. ?? (CAV/hm) DIAGNOSIS ? DIAGNOSIS ?PRE-TERM PLACENTA AND THREE VESSEL UMBILICAL ? CORD ? - FETO/PLACENTAL RATIO 4.3 (NER 3.9 - 5.3). ? - PARTIAL CIRCUMMARGINATE PLACENTAL MEMBRANE ? ATTACHMENT. ? - MILD, FOCAL, ACUTE CHORIOAMNIONITIS. Coding Technician ? ESTER RAM PATHOLOGIST ?Keyonna Rubio M.D. ELECTRONICALLY DREKEYONNA PIEDRA MISCELLANEOUS SAMPLES / Unknown 1995 10:30 AM CDT 1995 2:49 PM CDT Historical Provider LAB - PATHOLOGY/C YTOLOGY ORDERABLES [facility] PATH REPORT Care Teams Psychiatric Nurse Practitioner Relationship Specialty Start Date End Date Elvia Perez APRN-PERSONAL LOAN SPECIALIST [address] [place] [address] PCP - General Certified Clinical Nurse Specialist 11/04/22
--- OUTSIDE RECORDS SUMMARY | 2024-04-03 09:57 | XMS_ITS | Referral Summary ---
Author Organization [id number] Address [address] [place] [id number] Care Team Providers Care Concrete Products Machine Operator Name Role Phone No, Physician Primary Care Provider [phone] Allergies No known active allergies Medications propranolol [...] deficiency disease 10/03/2008 Obesity 09/25/2008 Hypertension 08/25/2007 Social History Tobacco Use Types Packs/Day Years Used Date Smoking Tobacco: Never Smokeless Tobacco: Never Personal Safety Answer Date Recorded Getting School Help Needed Not on file 05/21 Comments Unknown Sex and Gender Information Value Date Recorded Sex Assigned at Not on file Legal Sex Female 9:17 PM BARKEEPER Gender Identity Not on file Sexual Orientation [...] cm (5' 3 ) 03/10/2019 3:23 PM BARKEEPER Body Mass Index 34.41 03/10/2019 3:23 PM BARKEEPER Plan of Treatment Not on file Insurance IDPA CIGNA OPEN ACCESS IDPA CIGNA OPEN ACCESS CIGNA OPEN ACCESS Care Teams Concrete Products Machine Operator Relationship Specialty Start Date End Date No, Physician PCP - General 03/10/19
--- OUTSIDE RECORDS SUMMARY | 2024-04-03 09:57 | XMS_ITS | Referral Summary ---
Author Organization [facility] Address [address] [place] [address] Care Team Providers Care Dexigraph Operator Name Role Phone Elvia Perez APRN-[facility] Primary Care Provider [phone] Source Comments [facility],non-owned Affiliates and Associated Physician Practices is amultiple site organization consisting of ambulatory clinics and hospital sitesin [place], [place], [place] and [place]. This disclosure is being madepursuant to the Care Everywhere program and may not contain all information available regarding this patient. Last updated 17.[facility] Allergies Active Allergy Reactions Criticality Noted Date [...] 06/07/2013 Immunizations Name Administration Dates Next Due Covlizbeth Dangelo primary monoval ent 12+ yr 0.3mL Purple cap 10/15/2020,10/15/2020,09/25/2020, 021 INFLUENZA VACCINE 01/05/2013 Social History Tobacco Use Types Packs/Day Years [...] PM CDT Pulse 94 04/19/2015 7:00 PM TEST BORER Temperature 36.3 ??C (97.3 ??F) 11/08/2019 3:17 PM CD T Respiratory Rate 20 04/19/2015 7:00 PM TEST BORER Oxygen Saturation 99% 04/19/2015 7:00 PM TEST BORER Inhaled Oxygen Concentration - - Weight 83.5 kg (184 lb) 11/09/2023 3:45 PM CDT Height 160 cm (5' 3 ) 11/09/2023 3:45 PM CDT Body Mass Index 32.59 11/09/2023 3:45 PM CDT Plan of Treatment Upcoming Encounters Date Type Department Care Team (Late st Contact Info) Description 11/15/2024 10:15 AM CDT Office Visit [facility] - INCLUSION MANAGER [address] [facility] [address] [place] [address] Berna Araiza MD [address] [facility] [address] [place] [address] Procedures Procedure Name Priority Date/Time Associated Diagnosis [...] Case Report Gynecologic Cytology Report ? Case: [id number] ? Authorizing Provider: ??Berna Araiza MD ? Collected: ? 11/09/2023 04:08 PM ? Ordering Location: ? [facility] - ??Received: ?11/10/2023 01:03 PM ? INCLUSION MANAGER ? First Screen: ?Gael Cameron, CT(ASCP) ? Specimen: ?THINPREP - IMAGE GUIDED, Cervix/Endocervix ? 11/11/2023 1:01 PM CDT [facility] LMP 10/12/2023 11/11/2023 1:01 PM CDT [facility] Menstrual Status Oral Contraceptives 11/11/2023 1:01 PM CDT [facility] Specimen Adequacy Satisfactory for evaluation, endocervical/trans formation zone component present. 11/11/2023 1:01 PM CDT [facility] Categorization Negative for intraepithelial lesion or malignancy. 11/11/2023 1:01 PM CDT [facility] Interpretation PLANT CONTROL AIDE Negative for intraepithelial lesion or malignancy. 11/11/2023 1:01 PM CDT [facility] Pap Footnote The Pap Smear is a screening test. False positive and false negative results occur. Negative results do not preclude abnormalities, thus clinical correlation is required. This specimen was evaluated by the ThinPrep Imaging System along with an additional manual rescreening by a timber sizer and/or pathologist. 11/11/2023 1:01 PM CDT [facility] Embedded Images 1:01 PM CDT [facility] Pathology/Cytolo gy MISCELLANEOUS SAMPLES / Unknown 11/09/2023 4:08 PM CDT 11/10/2023 1:03 PM CDT Berna Araiza MD LAB - PATHOLOGY/CYTO LOGY ORDERABLES Performing Organization Address City/State/[facility] Co de Phone Number [facility] [address] [phone] from Last 3 Months or Most Recently Relevant to Health Maintenance Care Teams Dexigraph Operator Relationship Specialty Start Date End Date Elvia Perez APRN-MANIFOLD OPERATOR [facility] [place] [address] PCP - General Certified Clinical Nurse Specialist 11/04/22
--- OUTSIDE RECORDS SUMMARY | 2024-04-03 09:57 | XMS_ITS | Clinical Summary ---
Author Organization [facility] Address [address] [place] [address] Phone Care Team Providers Care Fire Alarm Dispatcher Name Role Phone Cortez Mitchell Primary Care Provider [phone] Allergies Active Allergy Reactions Criticality Noted Date Comments Dust Mite Extract 11/14/2013 Other reaction(s): Rhinitis Medications Medication Sig Dispensed Refills Start Date End Date Status cholecalciferol (VITAMIN D-3) 25 MCG (1000 UT) capsule Take 5,000 Units by mouth daily Active clonazePAM (KlonoPIN) 0.5 MG tablet 11/25/2020 Active diphenhydrAMINE (BENADRYL) 25 MG capsule Take 25 mg by mouth every 30 minutes as needed Active escitalopram (LEXAPRO) 20 MG tablet Take 20 mg by mouth 1 (one) time each day 07/18/2021 Active Camrese Lo 0.1-0.02 & 0.01 MG tablet Take 1 tablet by mouth 1 (one) time each day 07/03/2021 Active lisinopril (PRINIVIL) 10 MG tablet Take 10 mg by mouth 1 (one) time each day 06/12/2021 Active hydroCHLOROthiazide (HYDRODIURIL) 12.5 MG tablet Take 1 tablet (12.5 mg total) by mouth 1 (one) time each day 90 tablet 3 08/11/2021 Active Active Problems Problem Noted Date Diagnosed Date Vitamin D deficiency 10/03/2008 Hypertension 08/25/2007 Immunizations Name Administration Dates Next Due Influenza, Unspecified 01/05/2013 Pfizer Sars-cov-2 Vaccination 10/15/2020, 021 Social History Tobacco Use Types Packs/Day Years Used Date Smoking Tobacco: Never Smokeless Tobacco: Never Alcohol Use Standard Drinks/Week Comments Not Currently 0 (1 standard drink = 0.6 oz pur e alcohol) Sex and Gender Information Value Date Recorded Sex Assigned at Not on file Gender Identity Not on file Sexual Orientation Not on file Last Filed Vital Signs Vital Sign Reading Time Taken Comments Blood Pressure 134/70 08/11/2021 11:18 AM CDT Pulse 72 08/11/2021 11:18 AM CDT Temperature 36 ??C (96.8 ??F) 08/11/2021 11:18 AM CDT Respiratory Rate - - Oxygen Saturation - - Inhaled Oxygen Concentration - - Weight 87.5 kg (193 lb) 08/11/2021 11:18 AM CDT Height 157.5 cm (5' 2 ) 08/11/2021 11:18 AM CDT Body Mass Index 35.3 08/11/2021 11:18 AM CDT Plan of Treatment Health Maintenance Due Date Last Done Comments COVID-19 Vaccine ( season) 11/07/202312/2020, 09/25/2020 Influenza Vaccine (#1) 2023 01/05/2013 Care Teams Fire Alarm Dispatcher Relationship Specialty Start Date End Date Cortez Mitchell DO [address] [place] [address] PCP - General Internal Medicine 07/21/21
--- OUTSIDE RECORDS SUMMARY | 2024-04-03 09:57 | XMS_ITS | Encounter Summary ---
Author Organization [facility] Address [address] [place] [address] Care Team Providers Care Gunner'S Mate G Name Role Phone Cortez Wynne MD Primary Care Provider [phone] Wilbur Carpio MD Unavailable Elvia Perez KEYBOARD INSTRUMENT REPAIRER-[facility] Primary Care Provider [phone] Reason for Visit * Reason Onset Date Comments MEDICATION REFILL 03/22/2018 Encounter Details Date Type Department Care Team (Late Contact Info) Description 03/22/2018 Refill [facility] [address] [place] [address] Natali Alvarez, KEYBOARD INSTRUMENT REPAIRER-FIELD CONTRACTOR [address] [place] [phone] MEDICATION REFILL Social History Tobacco Use Types Packs/Day Years Used Date Smoking Tobacco: Never Smokeless Tobacco: Never Alcohol Use Standard Drinks/Week Comments No 0 (1 standard drink = 0.6 oz pur e alcohol) Sex and Gender Information Value Date Recorded Sex Assigned at Not on file Gender Identity Not on file Sexual Orientation Not on file documented as of this encounter Plan of Treatment Upcoming Encounters Date Type Department Care Team (Late st Contact Info) Description 11/15/2024 10:15 AM CDT Office Visit [facility] - DUMPSTER DRIVER [address] [facility] [address] [place] [address] Berna Araiza MD [address] [facility] [address] [place] [address] documented as of this encounter Visit Diagnoses Diagnosis Acute vaginitis Vaginitis and vulvovaginitis, unspecified Vaginal discharge Leukorrhea, not specified as infective documented in this encounter Care Teams Gunner'S Mate G Relationship Specialty Start Date End Date Cortez Wynne MD [address] [facility] [address] [place] [address] PCP - General 05/14/09 11/03/22 Wilbur Carpio MD [address] [place] [address] PCP - Attributed-[employer] [place] 06/06/20 01/14/21 Elvia Perez APRN-SECURITY INVESTIGATOR [address] [place], [place] [id number] PCP - General Certified Clinical Nurse Specialist 11/04/22 documented as of this encounter
[2024-04-03 16:29] LABS: Basophils Absolute Auto 0.1 K/mm3 (0.0-0.1); Basophils Percent Auto 0.7 % (0.2-1.2); Eosinophils Absolute Auto 0.3 K/mm3 (0-0.3); Eosinophils Percent Auto 3.6 % (0-4.4); Hematocrit 42.1 % (37.0-47.0); Hemoglobin 13.2 g/dL (12.0-15.0); Immature Granulocyte Absolute 0.04 K/mm3 (0.00-0.031); Immature Granulocyte Percent A 0.6 % (0-0.5); Lymphocytes Absolute Auto 2.83 K/mm3 (0.9-3.2); Lymphocytes Percent Auto 39.5 % (18.3-44.2); Mean Corpuscular HGB Conc 31.4 g/dl (32-36); Mean Corpuscular Hemoglobin 26.6 pg (26-34); Mean Corpuscular Volume 84.7 fl (80-100); Mean Platelet Volume 12.3 fl (7.4-10.4); Monocytes Absolute Auto 0.6 K/mm3 (0.1-0.6); Monocytes Percent Auto 8.5 % (2.6-8.5); Neutrophils Absolute Auto 3.4 K/mm3 (1.3-6.7); Neutrophils Percent Auto 47.1 % (45.5-73.1); Platelet Count Result 231 k/mm3 (150-375); Red Blood Count 4.97 M/mm3 (4.2-5.4); Red Cell Distribution Width 14.5 % (11.5-14.5); White Blood Count 7.2 K/mm3 (4.5-10.0)
[2024-04-03 16:38] LABS: Alanine Aminotransferase 14 U/L (6-35); Albumin Level 4.2 g/dL (3.5-5.1); Alkaline Phosphatase 70 U/L (38-126); Anion Gap 6 mmol/L (4-12); Aspartate Amino Transferase 83 U/L (14-36); Bilirubin,Total 0.4 mg/dL (0.2-1.3); Blood Urea Nitrogen 12 mg/dL (7-17); Calcium 9.2 mg/dL (8.4-10.2); Carbon Dioxide 28 mmol/L (22-30); Chloride 103 mmol/L (98-107); Estimated Glomerular Filt Rate > 60; Glucose 78 mg/dL (65-110); Potassium 4.4 mmol/L (3.4-5.0); Sodium 137 mmol/L (137-145)
[2024-04-03 17:25] LABS: Hemoglobin A1C 5.4 % (<5.7)
== END 2024-04-03 09:23 | disposition home or self-care (01) ==
LOC: ANHGOSHLAB 09:24
PROVIDERS: PCP Internal Medicine; Visit Provider Clinical Nurse Specialist
DX: R73.9 Hyperglycemia, unspecified (principal); I10 Essential (primary) hypertension; N28.89 Other specified disorders of kidney and ureter
CPT/HCPCS: 36415; 80053; 83036; 84443; 85025